=== PATIENT | male | born 1985 | race Two or more races ===

== ENCOUNTER 2025-06-17 13:11 | Inpatient (IN) | payer OTHER, SELFPAY ==
[2025-06-17] VITALS (8 sets, daily range): BP systolic 116–173; BP diastolic 71–102; PULSE 94–150; RESP 16–88; TEMP 36.1–37.6; O2SAT 94–97; BMI 37.6
--- NOTE | 2025-06-17 14:06 | EKG_ITS ---
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
--- NOTE | 2025-06-17 14:06 | XR_ITS ---
Examination: PA chest single view Technique: Upright PA chest single view Date and time: June 17, 2025 1419 hrs. Indications: Chest pain shortness of breath today. Findings: Moderate enlargement left ventricle. No pneumonia or pulmonary edema. The osseous structures are intact Impression: No pneumonia or pulmonary edema.
--- NOTE | 2025-06-17 14:10 | PD.EDRME ---
Rapid Medical Screening Exam RME Arrival date/time: 06/17/25 13:11 This is a 40 year male complaining on abdominal pain, nausea, vomiting, fever. Hx of diabetes. I have greeted and performed a focused initial assessment of this patient. Initial appropriate labs ordered at this time. A comprehensive ED assessment and evaluation of the patient and analysis of all test and completion of medical decision making process will be conducted by additional ED provider. Chief Complaint: Nausea/Vomiting/Diarrhea Time Seen by Provider: 06/17/25 13:17 Vital signs: Vital Signs Temperature 99.6 F 06/17/25 13:23 Pulse Rate 150 H 06/17/25 13:23 Respiratory Rate 20 06/17/25 13:23 Blood Pressure 142/102 H 06/17/25 13:23 Pulse Oximetry (%) 96 06/17/25 13:23 Oxygen Delivery Method Room Air 06/17/25 13:23
[2025-06-17 14:47] LABS: Basophils # (Auto) 0.0 Thou/mm3 (0.0-0.2); Basophils % (Auto) 0 % (0-2.5); Eosinophils # (Auto) 0.0 Thou/mm3 (0.0-0.5); Eosinophils % (Auto) 0 % (0-10); Hematocrit 46.3 % (41.0-53.0); Hemoglobin 15.4 g/dL (13.5-16.0); Immature Granulocytes Auto 0.05 Thou/mm3 (0.00-0.00); Lymphocytes # (Auto) 0.3 Thou/mm3 (1.0-4.8); Lymphocytes % (Auto) 2 % (10-50); Mean Corpuscular HGB Conc 33.3 g/dl (31.0-37.0); Mean Corpuscular Hemoglobin 28.2 pg (25.0-35.0); Mean Corpuscular Volume 85 fL (80-100); Monocytes # (Auto) 0.8 Thou/mm3 (0.0-0.8); Monocytes % (Auto) 5 % (0-12); Neutrophils # (Auto) 13.3 Thou/mm3 (1.8-7.7); Neutrophils % (Auto) 92 % (37-80); Nucleated Red Blood Cell # 0.00 Thou/mm3 (0.00-0.00); Nucleated Red Blood Cell % 0 /100 WBC (0); Platelet Count 256 Thou/mm3 (140-440); RDW Standard Deviation 38.7 fL (35.1-43.9); Red Blood Count 5.46 Miln/mm3 (4.50-5.90); White Blood Count 14.5 Thou/mm3 (3.8-10.6)
[2025-06-17 15:07] LABS: Collection Type, Urine Pedi-Bag
[2025-06-17] MEDS: ACETAMINOPHEN 500 MG TABLET 1000 MG PO (15:07)
[2025-06-17] MEDS: ONDANSETRON ODT 4 MG TABRAP PO (15:07)
[2025-06-17 15:18] LABS: Bacteria,Urine Rare; Bilirubin,Urine Negative (Negative); Blood,Urine Negative (Negative); Color,Urine Yellow (Lt Yel-Yel); Culture Indicated,Urine Not Indicated; Glucose, Urine 4+ (Negative); Granular Casts,Urine 2 /hpf (0-1); Hyaline Casts,Urine < 1 /hpf (0-1); Ketones,Urine Trace (Negative); Leukocyte Esterase,Urine Negative (Negative); Nitrite,Urine Negative (Negative); PH,Urine 5.5 (5.0-7.0); Protein,Urine 1+ (Neg - Trace); RBC,Urine 5 /hpf (0-3); Specific Gravity,Urine 1.036 (1.001-1.035); Squamous Epithelial Cell,Urine 4 /hpf (0-5); Urobilinogen,Urine Negative mg/dL (0.0-1.0); WBC,Urine 6 /hpf (0-5)
[2025-06-17 15:21] LABS: B-Type Natriuretic Peptide < 20 pg/mL (0-100)
[2025-06-17 15:23] LABS: Alanine Aminotransferase 80 U/L (10-49); Albumin, Serum 4.7 gm/dL (3.5-5.0); Albumin/Globulin Ratio 1.5 (1.2-2.2); Alkaline Phosphatase 77 U/L (46-116); Anion Gap 15 (7-16); Aspartate Amino Transferase 58 U/L (0-34); BUN/Creatinine Ratio 16 Ratio (12-20); Bilirubin,Total 0.7 mg/dL (0.3-1.2); Blood Urea Nitrogen 19 mg/dL (9-23); Calcium 9.9 mg/dL (8.3-10.6); Calcium (Corrected) 9.9 mg/dL (8.5-10.1); Carbon Dioxide 22.3 mMol/L (20.0-31.0); Chloride 100 mMol/L (98-107); Creatinine (Component) 1.2 mg/dL (0.6-1.3); Estimated Creatinine Clearance 109.0 mL/min (>60); Globulin 3.2 gm/dL (2.3-3.5); Glucose 380 mg/dL (74-106); Lipase 32 U/L (12-53); Osmolality,Calculated 292 (275-295); Potassium 4.1 mMol/L (3.4-5.1); Sodium 137 mMol/L (136-145); Total Protein 7.9 gm/dL (5.7-8.2); Troponin I < 0.020 ng/mL (0.0-0.045); eGFR > 60 See Note
--- NOTE | 2025-06-17 15:42 | EDNOTE_ITS ---
<Statement entered by Nida Porter MD - 06/18/25 06:24> As co-signing physician, I was present and available for consult prn. I concur with the plan and care as documented by the midlevel provider. ED General RME/HPI General Chief complaint: Nausea/Vomiting/Diarrhea Stated complaint: Vomiting today, fever, body aches Time Seen by Provider: 06/17/25 13:17 Arrival date/time: 06/17/25 13:11 RME / HPI RME / HPI narrative: 06/17/25 13:11 This is a 40 year male complaining on abdominal pain, nausea, vomiting, fever. Hx of diabetes. I have greeted and performed a focused initial assessment of this patient. Initial appropriate labs ordered at this time. A comprehensive ED assessment and evaluation of the patient and analysis of all test and completion of medical decision making process will be conducted by additional ED provider. 40-year-old male with past medical history of diabetes and hypertension comes into the ER with complaints of chills, diarrhea, nausea, vomiting, abdominal pain, and feelings of weakness that started this morning. Patient states that recently around 4 days ago he was bitten by something on his left side of neck and the lump appeared. He stated that the lump grew, but he has not had symptoms prior to today. He mentioned that the last thing that he ate out of his normal diet was a cup of Ramen with boiled eggs, but his girlfriend who also tasted the meal did not have any symptoms. Patient has been treated in the past for a diabetic ulcer as well. Otherwise patient denies having any chest pain, shortness of breath, burning sensation in urination, any blood in the urine, any blood in the bowel movements, or any blood in the vomiting. Patient admits social drinking, denies any smoking or drugs Related Data Home Medications ?Medication ?Instructions ?Recorded ?Confirmed lisinopril 40 mg tablet 40 mg PO QDAY 03/12/2303/12 metformin 500 mg tablet 1,000 mg PO BID 03/12/2309/24 Previous Rx's ?Medication ?Instructions ?Recorded semaglutide 1 mg/dose (4 mg/3 mL) 1 mg (0.75 mL) subcu t QWEEK #3 mL 03/13/23 subcutaneous pen injector (Ozempic) clindamycin HCl 300 mg capsule 300 mg PO Q6H #28 caps 01/29/24 ibuprofen 800 mg tablet 800 mg PO TID PRN pain #30 t abs 01/29/24 Allergies Allergy/AdvReac Type Severity Reaction Status Date / Time No Known Allergies Allergy Unknown Verified 06/17/25 13:17 Review of Systems Review of Systems Systems Reviewed: All systems reviewed, normal except as documented Past Medical History Past Medical History CARDIAC: Negative Cardiac Disorders or Congestive Heart Failure RESPIRATORY: Negative Chronic Obstructive Pulmonary Disease (COPD) or Asthma GENITOURINARY: Negative Renal Disease ENDOCRINE: Negative Diabetes Mellitus Type 1 or Diabetes Mellitus Type 2 HEMATOLOGIC: Negative Sickle Cell Disease Social History SMOKING STATUS: Never smoker ED Exam Narrative Physical exam: Gen: A&O X 3, ill appearing HEENT: NCAT, EOMI, Pupils reactive PIOTR, not icteric. External ears normal. No rhinorrhea. Moist mucous membranes. Neck: Supple, full range of motion, Nonfluctuating mobile mass measuring around 5 cm in diameter on the anterolateral aspect of the left neck with erythema and tenderness to palpation. No visible discharge. , No meningeal sign. Lungs: No Respiratory distress, clear bilateral. CV: tachycardic, no murmurs. Abdomen: Soft, nondistended, mildly tender to palpation in RLQ, No rebound tende rness. MSK: No joint swelling, no redness, peripheral pulses presents, lumbar with no edema. Skin: No petechiae, lesions. Demarcated rash around face, scalp, and around umbilicus is likely consistent with psoriasis. Neuro: No focal neurological deficits appreciated, sensory and motor intact. Psych: Cooperative, appropriate mood and effect. Course Quality Measures none Orders Category Date Time Status Bedside COVID-19 Antigen Test NOW Care 06/17/25 14:05 Active Bedside Influenza A&B Antigen Test NOW Care 06/17/25 14:05 Completed COVID-19 Screening Questionnaire NOW Care 06/17/25 18:[address] Screening NOW Care 06/17/25 16:09 Active Pre Certification Specialist STAT Care 06/17/25 15:52 Active Continuous Pulse Oximetry STAT Care 06/17/25 15:52 Completed Decision to Admit X1 Care 06/17/25 18:06 Active EKG (ED ONLY) *Do not use* NOW Care 06/17/25 14:06 Completed In and Out Catheter X1PRN Care 06/17/25 15:52 Active Insert IV NOW Care 06/17/25 15:52 Active NPO STAT Care 06/17/25 15:52 Active Strict Intake and Output Routine Care 06/17/25 15:[address] abdomen pelvis w con Stat Exams 06/17/25 16:[address] soft tissue neck w con Stat Exams 06/17/25 16:09 Completed EKG (ED Only) Stat Exams 06/17/25 14:06 Draft XR chest 1V Stat Exams 06/17/25 14:06 Completed BNP [B-Type Natriuretic Peptide] Stat Lab 06/17/25 14:35 Completed Beta Hydroxybutyrate Stat Lab 06/17/25 16:02 Completed Blood Culture (Lab) Stat Lab 06/17/25 16:07 Received CBC Stat Lab 06/17/25 14:35 Completed Comprehensive Metabolic Panel Stat Lab 06/17/25 14:35 Completed LDH (Lactate Dehydrogenase) Stat Lab 06/17/25 16:02 Completed Lactic Acid [Lactate (Lactic Acid)] Stat Lab 06/17/25 16:02 Results Lipase Stat Lab 06/17/25 14:35 Completed MRSA Nasal Screen Routine Lab 06/17/25 15:56 Ordered Magnesium Stat Lab 06/17/25 16:02 Completed Partial Thromboplastin Time Stat Lab 06/17/25 16:07 Completed Phosphorous Stat Lab 06/17/25 16:02 Completed Procalcitonin Stat Lab 06/17/25 16:02 Completed Prothrombin Time with INR Stat Lab 06/17/25 16:07 Completed Troponin I Stat Lab 06/17/25 14:35 Completed Urinalysis Stat Lab 06/17/25 15:52 Ordered Urinalysis, C/S if Indicated Stat Lab 06/17/25 15:00 Completed Urine Culture Stat Lab 06/17/25 15:52 Ordered Acetaminophen Tab [Tylenol ES Tab] Med 06/17/25 14:05 Discontinued 1,000 mg PO X1 ONE Magnesium Sulfate 4 GM Ivpb [Magnesium Sulfate Ivpb] Med 06/17/25 16:50 Active 4 gm in 50 ml IV X1 Ondansetron Inj [Zofran Inj] Med 06/17/25 15:52 Active 4 mg IVP Q6HR PRN Ondansetron Odt [Zofran Odt] Med 06/17/25 14:05 Discontinued 4 mg PO X1 ONE Piper/Tazo Inj [Zosyn Inj] 4.5 gm Med 06/17/25 15:51 Discontinued Sodium Chloride 0.9% (Pop) [NS 0.9% mini bag] 100 ml IV X1 Ringers Lactated 1000 ml [Lactated Ringers] 1,000 ml Med 06/17/25 15:52 Discontinued IV 999 mls/hr Ringers Lactated 1000 ml [Lactated Ringers] 1,000 ml Med 06/17/25 15:58 Discontinued IV 999 mls/hr Vancomycin Pharmacy to Dose Med 06/17/25 15:51 Discontinued 1 each IV X1 ONE Vancomycin/Water 1250 mg Ivpb 250 ml Med 06/17/25 16:00 Discontinued IV X1 Oxygen Delivery NOW RT 06/17/25 15:52 Active Vital Signs Vital signs: Vital Signs Temperature 99.6 F 06/17/25 13:23 Pulse Rate 150 H 06/17/25 13:23 Respiratory Rate 20 06/17/25 13:23 Blood Pressure 142/102 H 06/17/25 13:23 Pulse Oximetry (%) 96 06/17/25 13:23 Oxygen Delivery Method Room Air 06/17/25 13:23 Discharge Plan Plan Patient Disposition: Admit Acute Care w/in Hospital Prescriptions/Referrals Prescriptions/Med Rec: No Action metformin 500 mg tablet 1,000 mg PO BID lisinopril 40 mg tablet 40 mg PO QDAY Patient Comments: TAKE 1 TABLET BY MOUTH EVERY DAY FOR 90 DAYS Ozempic 1 mg/dose (4 mg/3 mL) pen injector 1 mg subcut QWEEK Qty: 3 0RF clindamycin HCl 300 mg capsule 300 mg PO Q6H Qty: 28 0RF ibuprofen 800 mg tablet 800 mg PO TID PRN (Reason: pain) Qty: 30 0RF Referrals: Chay Malcolm MD [Primary Care Provider] - In 1 week Problem List Clinical Impression: Community acquired pneumonia, Mass of neck Patient/Caregiver Discharge Instructions Print Language: [place] Zealander Stand Alone Forms: Sona Award Info., Patient Portal Info Letter MDM Narrative MDM hospital course: Patient was seen and evaluated upon arrival to the room by myself. Sepsis orders were called at 1552 as patient met SIRS criteria with tachycardia along with WBC elevation. At this time source of infection is uncertain as could be due to the abscess on the left neck versus possible intra-abdominal infection. 2 L of IV fluids were ordered along with Zosyn and vancomycin prior to starting antibiotics blood cultures were ordered. Also ordered CT abdomen with contrast and CT soft tissue neck with contrast. At this time patient's blood pressure was still stable. 18: 07: Spoke with IM team. Will pass along to night team for admission and they will assess patient. Case disclosed with Attending Dr. Charlotte Stark PGY2 Disclaimer: Even though this this note was dictated by speech recognition and even though it was carefully revised there may still be minor errors in fiberglass laminator due to voice recognition software. Medication Administration(s) Medication Administration History Magnesium Sulfate (Magnesium Sulfate Ivpb) 4 gm in 50 mls @ 12.5 mls/hr IV X1 ONE Stop: 06/17/25 20:49 Last Admin: 06/17/25 17:58 Dose: 12.5 mls/hr Documented By: RAISA Ondansetron HCl (Ondansetron Inj 2 Mg/Ml Inj 2 Ml) 4 mg IVP Q6HR PRN PRN Reason: NAUSEA OR VOMITING Stop: 07/17/25 15:51 Discontinued Medications Acetaminophen (Acetaminophen 500 Mg Tablet) 1,000 mg PO X1 ONE Stop: 06/17/25 14:06 Last Admin: 06/17/25 15:07 Dose: 1,000 mg Documented By: ANAT Piperacillin Sod/Tazobactam (Sod 4.5 gm/ Sodium Chloride) 100 mls @ 200 mls/hr IV X1 ONE Stop: 06/17/25 16:20 Last Infusion: 06/17/25 17:51 Dose: Infused Documented By: Admin: 06/17/25 16:40 Dose: 200 mls/hr Documented By: RAISA Lactated Ringer's (Lactated Ringers) 1,000 mls @ 999 mls/hr IV .Q1H1M ONE Stop: 06/17/25 16:52 Last Admin: 06/17/25 16:40 Dose: 999 mls/hr Documented By: RAISA Vancomycin HCl (Vancomycin/Water 1250 Mg Ivpb) 250 mls @ 120 mls/hr IV X1 ONE Stop: 06/17/25 18:04 Last Admin: 06/17/25 17:58 Dose: 120 mls/hr Documented By: RAISA Lactated Ringer's (Lactated Ringers) 1,000 mls @ 999 mls/hr IV .Q1H1M ONE Stop: 06/17/25 16:58 Last Admin: 06/17/25 16:40 Dose: 999 mls/hr Documented By: RAISA Ondansetron HCl (Ondansetron Odt 4 Mg Tabrap) 4 mg PO X1 ONE; Protocol Stop: 06/17/25 14:06 Last Admin: 06/17/25 15:07 Dose: 4 mg Documented By: ANAT Pharmacy Consult (Vancomycin Pharmacy To Dose 1 Each Each) 1 each IV X1 ONE Stop: 06/17/25 15:52 Last Admin: 06/17/25 18:00 Dose: Not Given Documented By: RAISA Non-Admin Reason: Other, see note
[2025-06-17 15:44] LABS: Clarity,Urine Hazy (Clear/Hazy)
--- NOTE | 2025-06-17 16:09 | XR_ITS ---
Examination: CT soft tissue neck, with intravenous contrast. 2-D coronal reconstructions. 2-D sagittal reconstructions. Date and time of exam :June 17, 2025, 1715 hours INDICATIONS: Onset left neck swelling and pain beginning 3 days ago. CTDI: vol (mGy):16.4 DLP: (mGycm):463 Technique: 1.25 mm axial sections of the neck of the obtained. Coronal and sagittal reconstructions have been obtained. Intravenous contrast administered 50 cc Isovue 370. Low dose protocols were performed. One or more of the following dose reduction techniques were used; automated exposure control, adjustment of the mA and/or KV according to patient size, use of iterative reconstruction technique. Findings: Cellulitis pattern in the soft tissue left neck external to the sternocleidomastoid muscle, for instance axial image 38, with skin thickening, as well as cellulitis in the posterior neck for instance axial image 20, primarily on the left side with skin thickening, without abscess at either site No pathologic lymphadenopathy The larynx appears normal Symmetrical parotid glands Symmetrical nasopharynx oropharynx Normal epiglottis Thyroid lobes exhibit symmetry IMPRESSION: Cellulitis pattern in the soft tissue left neck and posterior neck including skin thickening, no soft tissue abscess No pathologic lymphadenopathy
--- NOTE | 2025-06-17 16:09 | XR_ITS ---
Examination: CT abdomen with intravenous contrast CT pelvis with intravenous contrast 2-D coronal reconstructions 2-D sagittal reconstructions Date and time of exam:June 17, 2025. 1724 hours, comparison February 26, 2019 INDICATIONS: Sepsis alert today CTDI: vol (mGy) 17.8 DLP: (mGycm) 1194 Technique: Multiple axial sections of the abdomen and pelvis have been obtained. 64 slice high-resolution scanner used. 3 mm axial sections have been obtained, post intravenous injection of 60 cc Isovue 370 2-D sagittal, coronal reconstructions obtained. Low dose protocols were performed. One or more of the following dose reduction techniques were used; automated exposure control, adjustment of the mA and/or KV according to patient size, use of iterative reconstruction technique. Findings: Mild pneumonia right base. Fatty infiltration throughout the liver, no focal liver or splenic lesions No gallstones No pancreatic or adrenal mass. No renal or ureteral calculi, no hydronephrosis Aorta normal size 12 mm fat-containing umbilical hernia Appendix is not visualized No bowel obstruction No abdominal or pelvic abscess Minimal thickening of the urinary bladder wall No prostatomegaly The osseous structures are intact IMPRESSION: Mild pneumonia right base No renal or ureteral calculi, no hydronephrosis or CT findings of pyelonephritis Appendix is not visualized No bowel obstruction No abdominal or pelvic abscess Minimal thickening of the urinary bladder wall, consider cystitis
[2025-06-17 16:32] LABS: Beta Hydroxybutyrate 0.0 mmol/L (<0.6)
[2025-06-17 16:38] LABS: Lactate (Lactic Acid) 4.6 mMol/L (0.4-2.0)
[2025-06-17] MEDS: RINGERS LACTATED 1000 ML 1,000 ML 999 ML IV ×2 (16:40)
[2025-06-17] MEDS: PIPER/TAZO INJ 4.5 GM in SODIUM CHLORIDE 0.9% (POP) 100 ML IV (16:40)
[2025-06-17 16:47] LABS: LDH (Lactate Dehydrogenase) 308 U/L (120-246); Magnesium 1.1 mg/dL (1.6-2.6); Phosphorous 3.9 mg/dL (2.4-5.1); Procalcitonin 3.01 ng/ml (0.0-0.49)
[2025-06-17 16:57] LABS: INR 1.2 (0.9-1.3); Partial Thromboplastin Time 22.1 Seconds (22.0-36.0); Prothrombin Time 12.9 Seconds (9.0-12.2)
[2025-06-17] MEDS: Magnesium Sulfate 4 GM Ivpb 4 GM/50 ML BAG IV ×2 (17:58→22:07)
[2025-06-17] MEDS: VANCOMYCIN/WATER 1250 MG IVPB 250 ML 120 MG IV (17:58)
--- NOTE | 2025-06-17 18:09 | PD.RESEVENT ---
Documentation for date of: 06/17/25 Event Note Event Note: Received call for admission at 1810 for 48-year-old male with past medical history of uncontrolled diabetes mellitus, neck abscess in December 2021, diabetic right foot ulcer and hypertension who presented to [facility] ED for chills diarrhea nausea vomiting abdominal pain and feeling of weakness. Patient met SIRS criteria, had elevated lactate, 2 L IV fluids given in the ED per sepsis protocol, was given IV Zosyn and vancomycin. CT abdomen pelvis shows mild pneumonia right base,?Cystitis. CT soft tissue neck showed cellulitis pattern soft tissue neck. Low magnesium replaced in ED. Patient will be signed out to night hospitalist team for admission. Case discussed with Attending Physician MD Irais Rob MD Internal Medicine PGY-2 Disclaimer: This note was dictated by speech recognition. Minor errors in drum plater may be present due to voice recognition software.
[2025-06-17 18:56] LABS: Collection Type, Urine Clean Catch
[2025-06-17 19:10] LABS: Bilirubin,Urine Negative (Negative); Blood,Urine Negative (Negative); Clarity,Urine Clear (Clear/Hazy); Color,Urine Lt-Yellow (Lt Yel-Yel); Glucose, Urine 4+ (Negative); Ketones,Urine Negative (Negative); Leukocyte Esterase,Urine Negative (Negative); Nitrite,Urine Negative (Negative); PH,Urine 6.0 (5.0-7.0); Protein,Urine Negative (Neg - Trace); RBC,Urine < 1 /hpf (0-3); Specific Gravity,Urine 1.039 (1.001-1.035); Squamous Epithelial Cell,Urine 1 /hpf (0-5); Urobilinogen,Urine Negative mg/dL (0.0-1.0); WBC,Urine 1 /hpf (0-5)
[2025-06-17 19:13] LABS: Reflex Lactate? Y
[2025-06-17 19:41] LABS: Lactic Acid, 3 HR 3.3 mMol/L (0.4-2.0)
[2025-06-17] MEDS: HEPARIN SOD INJ 5000 UNIT/ML VIAL SC (22:06)
[2025-06-17] MEDS: SODIUM CHLORIDE 0.9% 1000 ML 1,000 ML 75 ML IV (22:08)
--- NOTE | 2025-06-17 22:57 | ESHP_ITS ---
<Statement entered by Hermann Howard MD - 06/19/25 09:53> I have discussed and was present for the essential components of the history, physical examination, diagnosis, and treatment plan with the resident. I agree with the patient's care as documented by the resident and amended herein by me. Hermann Howard MD FACP. Documentation for date of: 06/17/25 HPI History of Present Illness Chief complaint: Nausea, vomiting and diarrhea/neck cellulitis History of present illness: Patient is a 40-year-old male with history of type 2 diabetes (on metformin) and hypertension (on lisinopril) presenting with acute GI and infectious symptoms. He reports that he was in usual health until this morning when he developed sudden onset abdominal pain, nausea, vomiting (~5 episodes), and watery diarrhea (~5 episodes). No blood, mucus, bile, or coffee-ground emesis. No melena or hematochezia. He felt progressively worse through the morning, with subjective fever and chills, prompting ED visit. He also noticed a lump on the left side of his neck 3?4 days ago, initially small but has enlarged, mildly tender, and drained a small amount of fluid yesterday. No dysphagia, odynophagia, voice changes, or dyspnea. He recalls prior similar infections in 2019 (groin abscess, drained) and 3 years ago (scalp infection, treated with antibiotics). No recent travel or sick contacts. Only unusual food intake was ramen with eggs yesterday, though no one else got sick. No chest pain, shortness of breath, or palpitations. No urinary symptoms. Denies weight loss, night sweats, or neurologic deficits. ED Course: On arrival was tachycardic to 150 with BP 142/102, afebrile, and ill-appearing. Labs notable for WBC 14.5, lactate 4.6 (down to 3.3 after fluids), glucose 380, Cr 1.2 (baseline 0.8), Mg 1.1, procalcitonin 3.01. Sepsis protocol initiated with 2 L IV fluids, vancomycin, and zosyn; magnesium was repleted. CT abdomen/pelvis showed mild RLL pneumonia and bladder wall thickening (?cystitis). CT soft tissue neck revealed cellulitis without abscess. Blood and urine cultures were obtained. Patient stabilized in ED with HR improving to 90s, normotensive, SOFA 0. ROS * Constitutional: Fever, chills, fatigue. No night sweats, weight loss. * HEENT: Neck mass, mild tenderness. No dysphagia, voice changes, or dyspnea. * Resp: Denies cough, sputum, SOB, pleuritic pain. * Cardiac: No chest pain, palpitations, syncope. * GI: Nausea, vomiting, diarrhea, abdominal pain. No hematemesis, melena, hematochezia, constipation. * : No dysuria, hematuria, frequency, urgency. * Neuro: No headache, weakness, numbness, tingling. Blurry vision with near objects (chronic, uses glasses). * Skin: Known psoriasis, new neck lesion. No current foot ulcers. * MSK: No joint swelling or redness. * Psych: Denies mood changes, cooperative. 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 Left lateral neck with ~5 cm mobile, tender, erythematous mass with no drainage seen although patient has drained some, no fluctuance or airway compromise. Neck: Supple, no meningismus. CV: Tachycardic, regular, no murmurs. Pulm: No distress, clear breath sounds bilaterally. Abd: Soft, nondistended, mild RLQ tenderness without rebound/guarding. Skin: Psoriatic plaques on face/scalp/umbilicus. No new ulcers or lesions elsewhere. MSK: No edema, pulses 2+. Neuro: CN II?XII intact, motor and sensory intact. Psych: Cooperative, appropriate. Results: Labs 06/17/25 14:35 06/17/25 14:35 Labs: Short CBC 06/17/25 Range/Units 14:35 WBC 14.5 H (3.8-10.6) Thou/mm3 Hgb 15.4 (13.5-16.0) g/dL Hct 46.3 (41.0-53.0) % Plt Count 256 (140-440) Thou/mm3 BMP 06/17/25 14:35 Sodium 137 Potassium 4.1 Chloride 100 Carbon Dioxide 22.3 BUN 19 Creatinine 1.2 Glucose 380 H Calcium 9.9 Cardiac Enzymes 06/17/25 Range/Units 14:35 Troponin I < 0.020 (0.0-0.045) ng/mL Liver Function 06/17/25 Range/Units 14:35 Total Bilirubin 0.7 (0.3-1.2) mg/dL AST 58 H (0-34) U/L ALT 80 H (10-49) U/L Alkaline Phosphatase 77 (46-116) U/L Albumin 4.7 (3.5-5.0) gm/dL Urine 06/17/25 06/17/25 Range/Units 15:00 18:36 Urine Color Yellow Lt-Yellow (Lt Yel-Yel) Urine Clarity Hazy Clear (Clear/Hazy) Urine pH 5.5 6.0 (5.0-7.0) Ur Specific [place] 1.036 H 1.039 H (1.001-1.035) Urine Protein 1+ A Negative (Neg - Trace) Urine Glucose (UA) 4+ A 4+ A (Negative) Quality Measures Quality Measures VTE prophylaxis Medications Home Medications and Allergies Home Medications ?Medication ?Instructions ?Recorded ?Confirmed ?Type lisinopril 40 mg tablet 40 mg PO QDAY 03/12/2306/17 History metformin 500 mg tablet 1,000 mg PO BID 03/12/23 History semaglutide 2 mg/dose (8 mg/3 mL) 2 mg subcut .weekly 06/17/25 06/17/25 History subcutaneous pen injector (Ozempic) Allergies Allergy/AdvReac Type Severity Reaction Status Date / Time No Known Allergies Allergy Unknown Verified 06/17/25 13:17 Visit Medications Acetaminophen (Acetaminophen 325 Mg Tablet) 650 mg PO Q6H PRN PRN Reason: Fever >100.4 Stop: 07/17/25 20:40 Acetaminophen (Acetaminophen Supp 650 Mg Supp) 650 mg KS Q6H PRN PRN Reason: PAIN SCALE 1-3 (mild Stop: 07/17/25 20:40 Hydrocodone Bitart/Acetaminophen (Hydrocodone/Apap 5/325 Tablet) 1 tab PO Q4HR PRN PRN Reason: PAIN SCALE 4-10(Mod-Sev Stop: 06/22/25 20:40 Dextrose (Dextrose 50%-Water Inj 50 Ml Syringe) 50 ml IV Q15MIN PRN PRN Reason: BG <50 OR BG <70 & pt unresponsive Stop: 07/17/25 20:47 Dextrose (Dextrose 50%-Water Inj 50 Ml Syringe) 25 ml IV Q15MIN PRN PRN Reason: BG 50-70 responsive npo pt Stop: 07/17/25 20:47 Glucagon (Glucagon Inj 1 Mg Vial) 1 mg IM Q15MIN PRN PRN Reason: BG <70, and no IV access Heparin Sodium (Porcine) (Heparin Sod Inj 5000 Unit/Ml Vial) 5,000 unit SC Q12HR [facility] Stop: 07/01/25 20:59 Last Admin: 06/17/25 22:06 Dose: 5,000 unit Sodium Chloride (Ns) 1,000 mls @ 75 mls/hr IV .[id number] [facility] Stop: 07/17/25 20:44 Last Admin: 06/17/25 22:08 Dose: 75 mls/hr Magnesium Sulfate (Magnesium Sulfate Ivpb) 4 gm in 50 mls @ 12.5 mls/hr IV X1 ONE Stop: 06/18/25 00:45 Last Admin: 06/17/25 22:07 Dose: 12.5 mls/hr Piperacillin Sod/Tazobactam (Sod 4.5 gm/ Sodium Chloride) 100 mls @ 200 mls/hr IV Q8HR [facility] Stop: 06/24/25 21:59 Piperacillin Sod/Tazobactam (Sod 4.5 gm/ Sodium Chloride) 100 mls @ 200 mls/hr IV X1 ONE Stop: 06/18/25 00:29 Insulin Human Lispro (Insulin Lispro (Admelog) 1 Unit/0.01 Ml Unit) 0 unit SC [facility]; Protocol Stop: 07/18/25 07:29 Ondansetron HCl (Ondansetron Inj 2 Mg/Ml Inj 2 Ml) 4 mg IVP Q6HR PRN PRN Reason: NAUSEA OR VOMITING Stop: 07/17/25 15:51 Pantoprazole Sodium (Pantoprazole 40 Mg Tablet) 40 mg PO QDAY MICHAEL Stop: 07/18/25 08:59 Pharmacy Consult (Vancomycin Pharmacy To Dose 1 Each Each) 1 each IV QDAY MICHAEL Stop: 07/18/25 08:59 Sennosides (Senna Tablet) 1 tab PO QDAY PRN; Protocol PRN Reason: constipation Stop: 07/17/25 20:40 Discontinued Medications Acetaminophen (Acetaminophen 500 Mg Tablet) 1,000 mg PO X1 ONE Stop: 06/17/25 14:06 Last Admin: 06/17/25 15:07 Dose: 1,000 mg Piperacillin Sod/Tazobactam (Sod 4.5 gm/ Sodium Chloride) 100 mls @ 200 mls/hr IV X1 ONE Stop: 06/17/25 16:20 Last Infusion: 06/17/25 17:51 Dose: Infused Lactated Ringer's (Lactated Ringers) 1,000 mls @ 999 mls/hr IV .Q1H1M ONE Stop: 06/17/25 16:52 Last Infusion: 06/17/25 18:32 Dose: Infused Vancomycin HCl (Vancomycin/Water 1250 Mg Ivpb) 250 mls @ 120 mls/hr IV X1 ONE Stop: 06/17/25 18:04 Last Infusion: 06/17/25 20:03 Dose: Infused Lactated Ringer's (Lactated Ringers) 1,000 mls @ 999 mls/hr IV .Q1H1M ONE Stop: 06/17/25 16:58 Last Infusion: 06/17/25 18:32 Dose: Infused Magnesium Sulfate (Magnesium Sulfate Ivpb) 4 gm in 50 mls @ 12.5 mls/hr IV X1 ONE Stop: 06/17/25 20:49 Last Infusion: 06/17/25 22:06 Dose: Infused Ondansetron HCl (Ondansetron Odt 4 Mg Tabrap) 4 mg PO X1 ONE; Protocol Stop: 06/17/25 14:06 Last Admin: 06/17/25 15:07 Dose: 4 mg Pharmacy Consult (Vancomycin Pharmacy To Dose 1 Each Each) 1 each IV X1 ONE Stop: 06/17/25 15:52 Last Admin: 06/17/25 18:00 Dose: Not Given Assessment & Plan Plan 40M with uncontrolled DM and HTN presenting with acute abdominal pain, nausea/vomiting/diarrhea, fever/chills, and new left neck swelling, found to have SIRS with suspected multifactorial infection (neck cellulitis vs pneumonia vs cystitis). #SIRS (systemic inflammatory response syndrome) without acute organ dysfunction Patient meets SIRS criteria (tachycardia, leukocytosis, elevated lactate) but does not meet Sepsis (SOFA 0, no end-organ dysfunction). Infection appears multifactorial, with likely contributions from neck cellulitis (most suspicious primary source), possible right lower lobe pneumonia (seen on CT though no symptoms currently), and possible cystitis (bladder wall thickening on CT though UA negative). Plan: * Continue IV vancomycin + zosyn * Trend lactate q6h until normalized * Monitor vitals closely * Follow cultures (blood, urine) * Reassess source daily # Cellulitis of neck Left neck swelling x4 days, mildly tender, drained small amount of fluid, CT shows cellulitis without abscess. Plan: * Continue broad-spectrum abx * Monitor for abscess/airway compromise * ENT/surgery consult if worsening # Pneumonia, unspecified organism CT A/P with mild RLL pneumonia, though patient is without respiratory symptoms, sat stable. Plan: * Current antibiotics provide coverage * Incentive spirometry * Monitor for cough, fever, hypoxia # Cystitis, unspecified CT A/P shows bladder wall thickening, but UA negative, no urinary symptoms. Plan: * Follow urine culture * Continue current antibiotics * Monitor for new symptoms # Type 2 Diabetes Mellitus with hyperglycemia Glucose 380 on arrival, no DKA (B-hydroxybutyrate negative). On metformin at home. Plan: * Hold metformin (contrast + HALLIE) * Start SSI with correctional insulin * POC glucose q6h * Check A1C #Acute kidney injury, unspecified Cr 1.2 (baseline 0.8), likely prerenal from dehydration/sepsis. Plan: * Hold lisinopril * Gentle IVF as needed (avoid overload) * Monitor BMP daily #Hypomagnesemia Mg 1.1 on arrival, repleted in ED. Plan: * Recheck Mg in AM * Replace as needed #Hypertension On lisinopril 40 mg daily at home. BPs elevated in ED (142/102) but improved with fluids. Plan: * Hold lisinopril for now due to HALLIE * Monitor BP trend * Restart once renal function stable # Psoriasis Stable plaques on face, scalp, umbilicus. No acute flare. Plan: * Outpatient dermatology follow-up Health Maintenance Disposition: Admit to medicine floor with telemetry Feeding: Carb consistent diet Thromboprophylaxis: SQ heparin GI prophylaxis: Not indicated Code status: Full code ----- Plan discussed with attending physician Dr. Lee Chambers MD PGY-1 Internal Medicine
[2025-06-18] VITALS (9 sets, daily range): BP systolic 104–149; BP diastolic 75–93; PULSE 80–106; RESP 17–97; TEMP 36.1–36.6; O2SAT 93–99
[2025-06-18] MEDS: PIPER/TAZO INJ 4.5 GM in SODIUM CHLORIDE 0.9% (POP) 100 ML IV (00:19)
[2025-06-18 01:39] LABS: Lactate (Lactic Acid) 1.9 mMol/L (0.4-2.0)
[2025-06-18] MEDS: PIPER/TAZO 3.375 GM PREMIX 3.375 GM/50 ML BAG IV ×3 (05:25→23:00)
[2025-06-18 06:11] LABS: Basophils # (Auto) 0.0 Thou/mm3 (0.0-0.2); Basophils % (Auto) 0 % (0-2.5); Eosinophils # (Auto) 0.0 Thou/mm3 (0.0-0.5); Eosinophils % (Auto) 1 % (0-10); Hematocrit 39.0 % (41.0-53.0); Hemoglobin 13.0 g/dL (13.5-16.0); Immature Granulocytes Auto 0.01 Thou/mm3 (0.00-0.00); Lymphocytes # (Auto) 0.9 Thou/mm3 (1.0-4.8); Lymphocytes % (Auto) 11 % (10-50); Mean Corpuscular HGB Conc 33.3 g/dl (31.0-37.0); Mean Corpuscular Hemoglobin 28.5 pg (25.0-35.0); Mean Corpuscular Volume 86 fL (80-100); Monocytes # (Auto) 0.7 Thou/mm3 (0.0-0.8); Monocytes % (Auto) 8 % (0-12); Neutrophils # (Auto) 6.9 Thou/mm3 (1.8-7.7); Neutrophils % (Auto) 81 % (37-80); Nucleated Red Blood Cell # 0.00 Thou/mm3 (0.00-0.00); Nucleated Red Blood Cell % 0 /100 WBC (0); Platelet Count 195 Thou/mm3 (140-440); RDW Standard Deviation 38.9 fL (35.1-43.9); Red Blood Count 4.56 Miln/mm3 (4.50-5.90); White Blood Count 8.5 Thou/mm3 (3.8-10.6)
[2025-06-18 06:31] LABS: Glucose Estimated Average 220 mg/dL (80-131); Hemoglobin A1C 9.3 % Hgb (4.8-6.0)
[2025-06-18 07:37] LABS: Alanine Aminotransferase 68 U/L (10-49); Albumin, Serum 3.6 gm/dL (3.5-5.0); Albumin/Globulin Ratio 1.4 (1.2-2.2); Alkaline Phosphatase 52 U/L (46-116); Anion Gap 10 (7-16); Aspartate Amino Transferase 63 U/L (0-34); BUN/Creatinine Ratio 17 Ratio (12-20); Bilirubin,Total 0.6 mg/dL (0.3-1.2); Blood Urea Nitrogen 12 mg/dL (9-23); Calcium 8.6 mg/dL (8.3-10.6); Calcium (Corrected) 8.9 mg/dL (8.5-10.1); Carbon Dioxide 23.8 mMol/L (20.0-31.0); Chloride 104 mMol/L (98-107); Creatinine (Component) 0.7 mg/dL (0.6-1.3); Estimated Creatinine Clearance 191.7 mL/min (>60); Globulin 2.6 gm/dL (2.3-3.5); Glucose 254 mg/dL (74-106); Magnesium 2.0 mg/dL (1.6-2.6); Osmolality,Calculated 284 (275-295); Phosphorous 2.6 mg/dL (2.4-5.1); Potassium 3.5 mMol/L (3.4-5.1); Sodium 138 mMol/L (136-145); Total Protein 6.2 gm/dL (5.7-8.2); eGFR > 60 See Note
[2025-06-18] MEDS: INSULIN LISPRO (AdmeLOG) 1 UNIT/0.01 ML UNIT SC ×3 (07:41→17:14)
[2025-06-18] MEDS: PANTOPRAZOLE 40 MG TABLET PO (08:26)
[2025-06-18] MEDS: VANCOMYCIN/WATER 1GM IVPB 200 ML IV ×3 (08:26→21:19)
[2025-06-18] MEDS: HEPARIN SOD INJ 5000 UNIT/ML VIAL SC ×2 (08:26→21:16)
[2025-06-18] MEDS: INSULIN DEGLUDEC 5 UNIT/0.05 ML (PER 5 UNITS) SC ×2 (08:42→21:16)
[2025-06-18] MEDS: ACETAMINOPHEN 325 MG TABLET 650 MG PO (08:45)
--- NOTE | 2025-06-18 10:49 | PC.SS ---
Tc Horn is a 40 year-old male admitted to [facility] for N/V/D. SS conducted bedside contact with the patient to complete initial assessment and to discuss discharge planning. Role and reason explained. Patient confirmed demographic information. Patient identifies his mother Kelley Horn [phone] as his surrogate decision maker. Pt states he is able to complete all ADL?s independent. Pt does not possesses any DME. Pts PCP is Yun Hager. Pharmacy of choice is [facility]. Discharge options discussed and the pt wishes to return home.? Pt will provide transport. No further intervention required at this time, licensed clinical social worker would be available to address any further concerns. DC Plan: Home Contact: Mother Kelley Address: Confirmed on face sheet PCP: Yun
[2025-06-18] MEDS: INSULIN LISPRO (AdmeLOG) 1 UNIT/0.01 ML UNIT 2 UNIT SC ×2 (11:33→17:15)
--- NOTE | 2025-06-18 12:50 | PD.RESPRO ---
Documentation for date of: 06/18/25 Subjective Subjective Interval history: No acute events overnight. Patient seen and examined at bedside. Vitals and labs reviewed. Patient states he still feels weak overall, but says his weakness has improved. Patient states he is tolerating food well, endorsed a single soft bowel movement this morning. Patient denies fever, chest pain, shortness of breath, nausea, vomiting. Exam Vital Signs Temp Pulse Resp BP Pulse Ox O2 Del Method O2 Flow Rate 97.8 F 93 20 124/78 95 Room Air 2 06/18/25 08:00 06/18/25 08:43 06/18/25 08:09 06/18/25 08:43 06/18/25 08:00 06/18/25 08:00 06/17/25 19:20 Narrative Exam Gen: No acute distress, lethargic, A&O x3 HEENT: NC/AT, PERRLA, MMM. Left lateral neck with ~5 cm mobile, tender, erythematous mass with no drainage seen, no fluctuance or airway compromise. Neck: Supple, no meningismus. CV: Tachycardic, regular, no murmurs. Pulm: No distress, clear breath sounds bilaterally. Abd: Soft, nondistended, non-distended without rebound/guarding. Skin: Psoriatic plaques on face/scalp/umbilicus. No new ulcers or lesions elsewhere. MSK: No edema, pulses 2+. Neuro: CN II?XII intact, motor and sensory intact. Psych: Cooperative, appropriate. Objective Labs 06/19/25 05:37 06/19/25 05:37 Labs: Laboratory Results - last 24 hr 06/17/25 06/17/25 06/17/25 14:35 15:00 16:02 WBC 14.5 H RBC 5.46 Hgb 15.4 Hct 46.3 MCV 85 MCH 28.2 MCHC 33.3 RDW Std Deviation 38.7 Plt Count 256 Neut % (Auto) 92 H Lymph % (Auto) 2 L [place] % (Auto) 5 Eos % (Auto) 0 Baso % (Auto) 0 Neut # (Auto) 13.3 H Lymph # (Auto) 0.3 L [place] # (Auto) 0.8 Eos # (Auto) 0.0 Baso # (Auto) 0.0 Immature Gran # (Auto) 0.05 H Absolute Nucleated RBC 0.00 Immature Gran % 0 Nucleated RBC % 0 PT INR APTT Sodium 137 Potassium 4.1 Chloride 100 Carbon Dioxide 22.3 Anion Gap 15 BUN 19 Creatinine 1.2 Estim Creat Clear Calc 109.0 eGFR > 60 BUN/Creatinine Ratio [address] Glu mg/dL Hemoglobin A1c Calculated Osmolality 292 Lactic Acid 4.6 H* Calcium 9.9 Corrected Calcium 9.9 Phosphorus 3.9 Magnesium 1.1 L Total Bilirubin 0.7 AST 58 H ALT 80 H Alkaline Phosphatase 77 Lactate Dehydrogenase 308 H Troponin I < 0.020 B-Natriuretic Peptide < 20 Total Protein 7.9 Albumin 4.7 Globulin 3.2 Albumin/Globulin Ratio 1.5 Lipase 32 Beta-Hydroxybutyrate/Acetoacetate 0.0 Procalcitonin 3.01 H Ur Collection Type Pedi-Bag Urine Color Yellow Urine Clarity Hazy Urine pH 5.5 Ur Specific [place] 1.036 H Urine Protein 1+ A Urine Glucose (UA) 4+ A Urine Ketones Trace Urine Blood Negative Urine Nitrite Negative Urine Bilirubin Negative Urine Urobilinogen (Auto) Negative Ur Leukocyte Esterase Negative Urine RBC 5 H Urine WBC 6 H Ur Squamous Epith Cells 4 Urine Bacteria Rare Hyaline Casts < 1 Granular Casts 2 H Ur Culture Indicated? Not Indicated 06/17/25 06/17/25 06/17/25 16:07 18:36 19:35 WBC RBC Hgb Hct MCV MCH MCHC RDW Std Deviation Plt Count Neut % (Auto) Lymph % (Auto) [place] % (Auto) Eos % (Auto) Baso % (Auto) Neut # (Auto) Lymph # (Auto) [place] # (Auto) Eos # (Auto) Baso # (Auto) Immature Gran # (Auto) Absolute Nucleated RBC Immature Gran % Nucleated RBC % PT 12.9 H INR 1.2 APTT 22.1 Sodium Potassium Chloride Carbon Dioxide Anion Gap BUN Creatinine Estim Creat Clear Calc eGFR BUN/Creatinine Ratio Glucose Estimated Ave Glu mg/dL Hemoglobin A1c Calculated Osmolality Lactic Acid 3.3 H Calcium Corrected Calcium Phosphorus Magnesium Total Bilirubin AST ALT Alkaline Phosphatase Lactate Dehydrogenase Troponin I B-Natriuretic Peptide Total Protein Albumin Globulin Albumin/Globulin Ratio Lipase Beta-Hydroxybutyrate/Acetoacetate Procalcitonin Ur Collection Type Clean Catch Urine Color Lt-Yellow Urine Clarity Clear Urine pH 6.0 Ur Specific [place] 1.039 H Urine Protein Negative Urine Glucose (UA) 4+ A Urine Ketones Negative Urine Blood Negative Urine Nitrite Negative Urine Bilirubin Negative Urine Urobilinogen (Auto) Negative Ur Leukocyte Esterase Negative Urine RBC < 1 Urine WBC 1 Ur Squamous Epith Cells 1 Urine Bacteria None Hyaline Casts Granular Casts Ur Culture Indicated? 06/18/25 06/18/25 01:19 05:54 WBC 8.5 D RBC 4.56 Hgb 13.0 L D Hct 39.0 L MCV 86 MCH 28.5 MCHC 33.3 RDW Std Deviation 38.9 Plt Count 195 D Neut % (Auto) 81 H Lymph % (Auto) 11 [place] % (Auto) 8 Eos % (Auto) 1 Baso % (Auto) 0 Neut # (Auto) 6.9 Lymph # (Auto) 0.9 L [place] # (Auto) 0.7 Eos # (Auto) 0.0 Baso # (Auto) 0.0 Immature Gran # (Auto) 0.01 H Absolute Nucleated RBC 0.00 Immature Gran % 0 Nucleated RBC % 0 PT INR APTT Sodium 138 Potassium 3.5 D Chloride 104 Carbon Dioxide 23.8 Anion Gap 10 BUN 12 Creatinine 0.7 D Estim Creat Clear Calc 191.7 eGFR > 60 BUN/Creatinine Ratio 17 Glucose [address] Glu mg/dL 220 H Hemoglobin A1c 9.3 H Calculated Osmolality 284 Lactic Acid 1.9 Calcium 8.6 Corrected Calcium 8.9 Phosphorus 2.6 Magnesium 2.0 Total Bilirubin 0.6 AST 63 H ALT 68 H Alkaline Phosphatase 52 D Lactate Dehydrogenase Troponin I B-Natriuretic Peptide Total Protein 6.2 Albumin 3.6 D Globulin 2.6 Albumin/Globulin Ratio 1.4 Lipase Beta-Hydroxybutyrate/Acetoacetate Procalcitonin Ur Collection Type Urine Color Urine Clarity Urine pH Ur Specific [place] Urine Protein Urine Glucose (UA) Urine Ketones Urine Blood Urine Nitrite Urine Bilirubin Urine Urobilinogen (Auto) Ur Leukocyte Esterase Urine RBC Urine WBC Ur Squamous Epith Cells Urine Bacteria Hyaline Casts Granular Casts Ur Culture Indicated? Quality Measures Quality Measures VTE prophylaxis Assessment & Plan Assessment Current Active Medications: Generic Name Dose Route Start Last Admin Trade Name Freq PRN Reason Stop Dose Admin Acetaminophen 650 mg 06/17/25 20:41 Acetaminophen Supp 650 Mg Supp TN 07/17/25 20:40 Q6H PRN PAIN SCALE 1-3 (mild Protocol Acetaminophen 650 mg 06/18/25 08:45 Acetaminophen 325 Mg Tablet PO 07/17/25 20:40 Q6H PRN Fever >100.0 or pain 1-3 Hydrocodone Bitart/Acetaminophen 1 tab 06/17/25 20:41 Hydrocodone/Apap 5/325 Tablet PO 06/22/25 20:40 Q4HR PRN PAIN SCALE 4-10(Mod-Sev Dextrose 50 ml 06/17/25 20:48 Dextrose 50%-Water Inj 50 Ml Syringe IV 07/17/25 20:47 Q15MIN PRN BG <50 OR BG <70 & pt unresponsive Dextrose 25 ml 06/17/25 20:48 Dextrose 50%-Water Inj 50 Ml Syringe IV 07/17/25 20:47 Q15MIN PRN BG 50-70 responsive npo pt Glucagon 1 mg 06/17/25 20:48 Glucagon Inj 1 Mg Vial IM Q15MIN PRN BG <70, and no IV access Heparin Sodium (Porcine) 5,000 unit 06/17/25 21:00 06/18/25 08:26 Heparin Sod Inj 5000 Unit/Ml Vial SC 07/01/25 20:59 5,000 unit Q12HR MICHAEL Administration Piperacillin/Tazobactam/Dextrose 3.375 gm in 50 mls @ 12.5 mls/hr 06/18/25 06:00 06/18/25 05:25 Zosyn IV 06/25/25 05:59 12.5 mls/hr Q8HR [facility] Administration Protocol Vancomycin HCl 200 mls @ 120 mls/hr 06/18/25 08:00 06/18/25 08:26 Vancomycin/Water 1gm Ivpb IV 06/25/25 07:59 120 mls/hr Q8HR MICHAEL Administration Insulin Degludec 5 unit 06/18/25 21:00 Insulin Degludec 5 Unit/0.05 Ml (Per 5 Units) SC 07/18/25 20:59 HS MICHAEL Insulin Human Lispro 0 unit 06/18/25 07:30 06/18/25 11:34 Insulin Lispro (Admelog) 1 Unit/0.01 Ml Unit SC 07/18/25 07:29 2 unit AC [facility] Administration Protocol Insulin Human Lispro 2 unit 06/18/25 12:00 06/18/25 11:33 Insulin Lispro (Admelog) 1 Unit/0.01 Ml Unit SC 07/18/25 11:59 2 unit TIDWM MICHAEL Administration Lisinopril 40 mg 06/18/25 09:00 06/18/25 08:43 Lisinopril 20 Mg Tablet PO 07/18/25 08:59 40 mg QDAY MICHAEL Administration Ondansetron HCl 4 mg 06/17/25 15:52 Ondansetron Inj 2 Mg/Ml Inj 2 Ml IVP 07/17/25 15:51 Q6HR PRN NAUSEA OR VOMITING Pantoprazole Sodium 40 mg 06/18/25 09:00 06/18/25 08:26 Pantoprazole 40 Mg Tablet PO 07/18/25 08:59 40 mg QDAY MICHAEL Administration Pharmacy Consult 1 each 06/18/25 09:00 Vancomycin Pharmacy To Dose 1 Each Each IV 07/18/25 08:59 QDAY PRN CONSULT Sennosides 1 tab 06/17/25 20:41 Senna Tablet PO 07/17/25 20:40 QDAY PRN constipation Protocol Plan Assessment 40M with uncontrolled DM and HTN presenting with acute abdominal pain, nausea/vomiting/diarrhea, fever/chills, and new left neck swelling, found to have SIRS with suspected multifactorial infection (neck cellulitis vs pneumonia vs cystitis). #SIRS (systemic inflammatory response syndrome) without acute organ dysfunction #lactic acidosis, improved Patient meets SIRS criteria (tachycardia, leukocytosis, elevated lactate) but does not meet Sepsis (SOFA 0, no end-organ dysfunction). Infection appears multifactorial, with likely contributions from neck cellulitis (most suspicious primary source), possible right lower lobe pneumonia (seen on CT though no symptoms currently), and possible cystitis (bladder wall thickening on CT though UA negative). Lactic Acid on admission 4.6 -> 3.3 -> 06/18: 1.9 Plan: -Continue IV vancomycin + zosyn -ID consulted -Monitor vitals closely -Follow cultures (blood, urine) -Reassess source daily # Cellulitis of neck Left neck swelling x4 days, mildly tender, drained small amount of fluid, CT shows cellulitis without abscess. Plan: -Continue broad-spectrum abx -Started MRSA precautions given hx of MRSA pos wound cultures -ID consulted -Monitor for abscess/airway compromise -ENT/surgery consult if worsening # Pneumonia, unspecified organism CT A/P with mild RLL pneumonia, though patient is without respiratory symptoms, sat stable. Plan: -Current antibiotics provide coverage -incentive spirometry -Monitor for cough, fever, hypoxia # Type 2 Diabetes Mellitus with hyperglycemia Glucose 380 on arrival, no DKA (B-hydroxybutyrate negative). On metformin at home. 06/18: HbA1c 9.3, Glucose 254 Plan: -Gave Insulin Degludec 5 units x1 -Hold metformin (contrast + HALLIE) -Start SSI with correctional insulin -POC glucose q6h #Nausea, vomiting, and suspected C. difficile infection Patient presented after having sudden onset abdominal pain, nausea, vomiting (~5 episodes), and watery diarrhea (~5 episodes). 06/18: Patient had 1 soft stool this morning. -Ordered C.diff pcr and stool cultures #Mildly elevated LFT's May be due to hypovolemia (reduced liver perfusion) due to n/v & diarrhea Patient presented with AST 58, ALT 80. 06/18: AST 63, ALT 68. -will continue to trend lft's. # Cystitis, unspecified CT A/P shows bladder wall thickening, but UA negative, no urinary symptoms. Plan: -Follow urine culture -Continue current antibiotics -Monitor for new symptoms #Acute kidney injury, unspecified Cr 1.2 (baseline 0.8), likely prerenal from dehydration/sepsis. 06/18: Cr 0.7 Plan: -Restarted Lisinopril 40 mg qd -Gentle IVF as needed (avoid overload) -Monitor BMP daily #Hypomagnesemia, improving Mg 1.1 on arrival, repleted in ED. 06/18: 2.0 Plan: -Recheck Mg in AM -Replace as needed #Hypertension On lisinopril 40 mg daily at home. BPs elevated in ED (142/102) but improved with fluids. Plan: -Restarted Lisinopril 40 mg qd; Cr improved to 0.7 -Monitor BP trend -Restart once renal function stable # Psoriasis Stable plaques on face, scalp, umbilicus. No acute flare. Plan: -Outpatient dermatology follow-up Health Maintenance Disposition: Admit to medicine floor with telemetry Feeding: Carb consistent diet Thromboprophylaxis: SQ heparin GI prophylaxis: Not indicated Code status: Full code Patient plan of care was discussed with the attending physician, Dr. Hernandez & senior resident Dr. Johan Wang MD PGY-1 Attending Provider Attestation/Addendum Patient seen and examined at bedside. Agree with the assessment and plan as dictated above. Sepsis m/l 2/2 skin infection with possible abscess. Will continue with broad spectrum abx including coverage for MRSA. Patient needs tighter BG control Rivera Hernandez MD
[2025-06-18 14:10] LABS: Stool for WBCs Negative (Negative)
[2025-06-19] VITALS (7 sets, daily range): BP systolic 102–125; BP diastolic 56–79; PULSE 87–100; RESP 17–95; TEMP 36.1–36.4; O2SAT 94–97
[2025-06-19] MEDS: PIPER/TAZO 3.375 GM PREMIX 3.375 GM/50 ML BAG IV (05:26)
[2025-06-19 06:28] LABS: Basophils # (Auto) 0.0 Thou/mm3 (0.0-0.2); Basophils % (Auto) 1 % (0-2.5); Eosinophils # (Auto) 0.1 Thou/mm3 (0.0-0.5); Eosinophils % (Auto) 2 % (0-10); Hematocrit 38.1 % (41.0-53.0); Hemoglobin 12.6 g/dL (13.5-16.0); Immature Granulocytes Auto 0.01 Thou/mm3 (0.00-0.00); Lymphocytes # (Auto) 1.6 Thou/mm3 (1.0-4.8); Lymphocytes % (Auto) 31 % (10-50); Mean Corpuscular HGB Conc 33.1 g/dl (31.0-37.0); Mean Corpuscular Hemoglobin 28.8 pg (25.0-35.0); Mean Corpuscular Volume 87 fL (80-100); Monocytes # (Auto) 0.8 Thou/mm3 (0.0-0.8); Monocytes % (Auto) 16 % (0-12); Neutrophils # (Auto) 2.5 Thou/mm3 (1.8-7.7); Neutrophils % (Auto) 50 % (37-80); Nucleated Red Blood Cell # 0.00 Thou/mm3 (0.00-0.00); Nucleated Red Blood Cell % 0 /100 WBC (0); Platelet Count 178 Thou/mm3 (140-440); RDW Standard Deviation 40.4 fL (35.1-43.9); Red Blood Count 4.38 Miln/mm3 (4.50-5.90); White Blood Count 5.1 Thou/mm3 (3.8-10.6)
[2025-06-19 06:39] LABS: Alanine Aminotransferase 79 U/L (10-49); Albumin, Serum 3.6 gm/dL (3.5-5.0); Albumin/Globulin Ratio 1.5 (1.2-2.2); Alkaline Phosphatase 48 U/L (46-116); Anion Gap 8 (7-16); Aspartate Amino Transferase 70 U/L (0-34); BUN/Creatinine Ratio 16 Ratio (12-20); Bilirubin,Total 0.4 mg/dL (0.3-1.2); Blood Urea Nitrogen 13 mg/dL (9-23); Calcium 8.5 mg/dL (8.3-10.6); Calcium (Corrected) 8.8 mg/dL (8.5-10.1); Carbon Dioxide 26.6 mMol/L (20.0-31.0); Chloride 105 mMol/L (98-107); Creatinine (Component) 0.8 mg/dL (0.6-1.3); Estimated Creatinine Clearance 167.7 mL/min (>60); Globulin 2.4 gm/dL (2.3-3.5); Glucose 168 mg/dL (74-106); Magnesium 1.8 mg/dL (1.6-2.6); Osmolality,Calculated 283 (275-295); Phosphorous 3.1 mg/dL (2.4-5.1); Potassium 3.7 mMol/L (3.4-5.1); Sodium 140 mMol/L (136-145); Total Protein 6.0 gm/dL (5.7-8.2); Vancomycin,Trough 8.3 mcg/mL (5.0-10.0); eGFR > 60 See Note
[2025-06-19] MEDS: VANCOMYCIN/WATER 1GM IVPB 200 ML IV (06:47)
[2025-06-19] MEDS: INSULIN LISPRO (AdmeLOG) 1 UNIT/0.01 ML UNIT SC ×2 (08:00→12:33)
[2025-06-19] MEDS: INSULIN LISPRO (AdmeLOG) 1 UNIT/0.01 ML UNIT 2 UNIT SC ×2 (08:01→12:34)
[2025-06-19] MEDS: HEPARIN SOD INJ 5000 UNIT/ML VIAL SC (08:01)
[2025-06-19] MEDS: PANTOPRAZOLE 40 MG TABLET PO (08:02)
[2025-06-19 08:54] LABS: Hepatitis C Antibody Non Reactive (Non React)
[2025-06-19 10:00] LABS: HIV (1&2) Antibody Rapid Non-Reactive
--- NOTE | 2025-06-19 11:11 | ESCONSULT_ITS ---
RE: DAYNA CHAVEZ : 1985 DATE OF CONSULTATION: 06/19/2025 REFERRING PHYSICIAN: Chay Malcolm MD and Hermann Howard MD REASON FOR CONSULTATION: Diabetic and hypertensive with left neck mass, probably a small abscess. HISTORY OF PRESENT ILLNESS: The patient is a recent father. He has a baby at home. He has a left cervical mass of uncertain origin. He notes no positive cultures, no positive systemic cultures. He had an elevated lactic acid on arrival and procalcitonin, so he was admitted to the hospital and has received IV therapy, but all cultures have been negative. bc were originally on the the 16th in the evening, so it is not quite 48 hours. He says he has been here for about 2 days, but it has been probably 2 days officially at about 4:00 p.m. He had group A strep in blood culture in 2023 and received antibiotics at that time whatt exactly he is not clear. His A1c is pending. Hepatitis C testing is negative. HIV testing is pending. He reports no sexual contacts as his recently had a baby. He is on Ozempic and metformin for his diabetes, lisinopril for his blood pressure and not taking his ibuprofen which he is on a p.r.n. basis and clindamycin, which he is also off. I am asked to see him to advised regarding treatment plan. He has been on vancomycin and Zosyn for couple of days. There is no recent renal dysfunction and his labs have improved significantly. He is mildly anemic though, which is relatively new. His MCV is normal. MCHC is normal as well. Platelet count is on low end and lymphocyte count is also okay, which is initially slightly low. Sed rate in 2022 was 10. It has not been repeated, but there is no need for it to be repeated. Labs reviewed, some of them date back several years. PHYSICAL EXAMINATION: On exam, the patient is pleasant, and cooperative. There is a nontender mass in the left neck inferiorly. It is fairly unimpressive. It looks like more of an inclusion cyst and it may be MRSA and it is hard to know. Usually abscesses are caused by staph and so we can change his antibiotics to doxycycline. Clindamycin would have worked in many cases, but it is unclear that it did and many of the staph are resistant to it mssa is also sensitive to doxycycline so we can try that. If it does not work, Bactrim may be okay. The patient will likely go home on oral therapy and will complete therapy as an outpatient. Another week to 10 days of oral doxycycline will be fine. He should control his diabetes as best he can as well and hopefully, his baby will field return repairer okay. If his HIV is positive, I can see him again on Thursday, but otherwise there is no need for any further follow-up infectious disease. He is to follow up with Dr. Malcolm. He sees Dr. Chay Malcolm at [facility]. DT: 09:27:41 TT: 11:10:00 Ref: [id number] - TID: [id number] MTDD
--- NOTE | 2025-06-19 18:09 | ESDS_ITS ---
<Statement entered by Vlad Prado MD - 06/20/25 20:03> I have reviewed the note and agree with the resident's assessment & plan with exceptions as below. I have personally reviewed labs, imaging, home meds/prior records, examined the patient, formulated and discussed management plan with the IM team. Pt examined at bedside. Cultures negative after 48 hours, pt seen by ID, recommendations of Doxycycline. Pt was then discharged with doxy, to take as prescribed. 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 Pt was then discharged with the following instructions listed below. Vlad Prado, PGY-2 Internal Medicine Planned Discharge Date 06/19/25 DS: Providers Provider Date of admission: 06/17/25 20:33 Primary care physician: Chay Malcolm MD Admitting Provider: Hermann Howard MD Attending Provider on Admission: Eleazar Zelaya MD Consults: 06/18/25 14:31 Consult to Infectious Diseases Routine Comment: recurrent MRSA infections Consulting Provider: [place] Attending Provider on DC: Eleazar Zelaya MD Discharging Provider: Eleazar Zelaya MD DS: Diagnosis Problem List Completed Was Problem List Reviewed/Reconciled?: Yes Hospital Course Hospital Course Hospital course: Patient is a 40-year-old male with history of type 2 diabetes (on metformin) and hypertension (on lisinopril) presenting to [facility] with acute GI and infectious symptoms. Patient admitted for intractable nausea & vomiting, found to have neck cellulitis. Patient was found to have worsening abdominal pain, nausea, vomiting (~5 episodes), and watery diarrhea (~5 episodes). Also found to have cellulitis of neck for the last 3?4 days, initially small but has enlarged, mildly tender, and drained a small amount of fluid the day before admission. The neck cellulitis did not interfere with his breathing, speech, or swallowing. On arrival to the ED, he was tachycardic to 150 with BP 142/102, afebrile, and ill-appearing. Labs notable for WBC 14.5, lactate 4.6, glucose 380, Cr 1.2 (baseline 0.8), Mg 1.1, procalcitonin 3.01. Sepsis protocol initiated with 2 L IV fluids, vancomycin, and zosyn; magnesium was repleted. CT abdomen/pelvis showed mild right lower lobe pneumonia and bladder wall thickening. CT soft tissue neck revealed cellulitis without abscess. Blood and urine cultures were obtained. Patients was stabilized in ED with HR improving to 90s, normotensive. Blood and urine cultures were found to be negative after 48 hours. Kidney function tests improved throughout hospitalization. Infectious disease was consulted and recommended being discharged on oral doxycycline for outpatient use. Patient arrived with out of control glucose which was support ively managed in the hospital and needs to be thoroughly addressed outpatient. Discharge Instructions ? Follow-up with you primary care physician within 1 week from discharge ? Use the antibiotic doxycycline 100 mg orally 2 times a day to complete 10 days ? Your blood sugar is not controlled for the reason you have increased risk for recurrent skin infections, your blood sugar should be well-controlled to achieve best results and to prevent recurrence. Follow-up with your primary care provider for further recommendations ?In case of worsening of your symptoms please return to the ED as soon as possible ? Use medications as prescribed Admission Diagnosis #lactic acidosis #Cellulitis of neck #Pneumonia, unspecified organism #Type 2 Diabetes Mellitus with hyperglycemia #Nausea, vomiting, diarrhea #Mildly elevated LFT's #Cystitis, unspecified #Acute kidney injury, unspecified #Hypomagnesemia #Hypertension #Psoriasis Patient plan of care was discussed with the attending physician, Dr. Zelaya & senior resident Dr. Johan Wang MD PGY-1 Time Spent with Patient Time attestation: Total time spent providing and/or coordinating discharge services: Time spent: Greater than 30 minutes Exam Vital Signs Temp Pulse Resp BP Pulse Ox O2 Del Method O2 Flow Rate 97.0 F 90 17 115/75 95 Room Air 2 06/19/25 16:06/19/25 16:06/19/25 16:06/19/25 16:06/19/25 16:06/19/25 16:06/17/25 19:20 Narrative Exam Gen: No acute distress, A&O x3 HEENT: NC/AT, PERRLA, MMM. Left lateral neck with ~5 cm mobile, tender, erythematous mass with no drainage seen, no fluctuance or airway compromise. Neck: Supple, no meningismus. CV: Tachycardic, regular, no murmurs. Pulm: No distress, clear breath sounds bilaterally. Abd: Soft, nondistended, non-distended without rebound/guarding. Skin: Psoriatic plaques on face/scalp/umbilicus. No new ulcers or lesions elsewhere. MSK: No edema, pulses 2+. Neuro: CN II?XII intact, motor and sensory intact. Psych: Cooperative, appropriate. Discharge Plan Plan Patient Disposition: HOME (Self Care) Patient condition on transfer: Stable Care Plan Goals: Discharge instructions: ? Follow-up with you primary care physician within 1 week from discharge ? Use the antibiotic doxycycline 100 mg orally 2 times a day to complete 10 days ? Your blood sugar is not controlled for the reason you have increased risk for recurrent skin infections, your blood sugar should be well-controlled to achieve best results and to prevent recurrence. Follow-up with your primary care provider for further recommendations ?In case of worsening of your symptoms please return to the ED as soon as possible ? Use medications as prescribed Prescriptions/Referrals Prescriptions/Med Rec: New hydrocodone-acetaminophen 5-325 mg Tablet 1 tab PO Q6H MDD 20mg PRN (Reason: Pain Scale 4-10(Mod-Sev) 5 Days Qty: 20 0RF doxycycline hyclate 100 mg Tablet 100 mg PO BID 9 Days Qty: 18 0RF Continued metformin 500 mg tablet 1,000 mg PO BID lisinopril 40 mg tablet 40 mg PO QDAY Patient Comments: TAKE 1 TABLET BY MOUTH EVERY DAY FOR 90 DAYS Ozempic 2 mg/dose (8 mg/3 mL) pen injector 2 mg SUBCUT .weekly Patient Comments: INJECT 2 MG SUBCUTANEOUSLY WEEKLY-every thursday Discontinued Ozempic 1 mg/dose (4 mg/3 mL) pen injector 1 mg subcut QWEEK Qty: 3 0RF clindamycin HCl 300 mg capsule 300 mg PO Q6H Qty: 28 0RF ibuprofen 800 mg tablet 800 mg PO TID PRN (Reason: pain) Qty: 30 0RF Referrals: Chay Malcolm MD [Primary Care Provider] - Patient/Caregiver Discharge Instructions Discharge Activity: activity as tolerated Education Materials: CGM, Your Diabetes Foot Care Program, ED Abscess Antibi otic ... Print Language: [place] Stand Alone Forms: Sona Award Info., Patient Portal Info Letter Discharge Order Discharge Orders: Discharge (Routine); Ordered 06/19/25 Ordered By: Abdoulaye Butt Quality Discharge Quality Measures VTE prophylaxis MD Attestestation MD Attestation I have examined the patient, reviewed labs and imaging findings, discussed the case with the resident(s), and reviewed entered orders. I agree with the plan of care as outlined in this note. Time Spent: [address] Nathalie MD
== END 2025-06-19 16:30 | disposition home or self-care (01) | DRG 602 ==
LOC: SERX 18:08 → SERHOLD 21:18 → S3NX 06-19 06:19
PROVIDERS: Internal Medicine Infectious Disease; Nurse Practitioner Family; Admitting Provider Internal Medicine; Emergency Provider Emergency Medicine; PCP Family Medicine; Visit Provider Student in an Organized Health Care Education/Training Program
DX: L03.221 Cellulitis of neck (principal); J18.9 Pneumonia, unspecified organism; N17.9 Acute kidney failure, unspecified; E87.20 Acidosis, unspecified; I10 Essential (primary) hypertension; L40.9 Psoriasis, unspecified; E83.42 Hypomagnesemia; D64.9 Anemia, unspecified; E11.65 Type 2 diabetes mellitus with hyperglycemia; Z79.84 Long term (current) use of oral hypoglycemic drugs; N30.90 Cystitis, unspecified without hematuria; Z79.85 Long-term (current) use of injectable non-insulin antidiabetic drugs; Z79.899 Other long term (current) drug therapy; R79.89 Other specified abnormal findings of blood chemistry; B95.62 Methicillin resistant Staphylococcus aureus infection as the cause of diseases classified elsewhere
CPT/HCPCS: 36415; 70491; 71045; 74177; 80053; 80202; 81001; 82010; 83036; 83605; 83615; 83690; 83735; 83880; 84100; 84145; 84484; 85025; 85610; 85730; 86703; 86803; 87015; 87040; 87045; 87046; 87081; 87086; 87205; 87400; 87493; 87811; 87899; 93005; 96365; 96366; 99284; A4649; J1644; J1815; J2543; J3372; J3375; J3475; J7030; J7120; Q0162; Q9967; A9270

== ENCOUNTER 2025-06-22 12:07 | Emergency (ER) | payer OTHER, SELFPAY ==
[2025-06-22 12:08] VITALS: BMI 39.2
--- NOTE | 2025-06-22 12:26 | XR_ITS ---
Examination: CT abdomen and pelvis without contrast. Coronal 3-D reconstructions. Sagittal 2-D reconstructions. Date and time of exam:04/22/2025 1444 hours INDICATIONS: Lower abdominal pain with bilateral flank pain today COMPARISON: June 17, 2025 CTDI: vol (mGy): 13 DLP: (mGycm): 907 Technique: Axial images of the abdomen have been obtained, 3 mm slice thickness Intravenous contrast material has not been administered. Low dose protocols were performed. One or more of the following dose reduction techniques were used; automated exposure control, adjustment of the mA and/or KV according to patient size, use of iterative reconstruction technique. Findings: Liver irregular in contour with diffuse fatty infiltration No gallstones Spleen not enlarged No pancreatic or adrenal mass 2 mm right renal calculus Minimal right hydronephrosis secondary to 2 mm right ureterovesical junction calculus No bowel obstruction No pericecal inflammatory change Mild thickening of urinary bladder wall IMPRESSION: Minimal right hydronephrosis secondary to 2 mm distal right ureterovesical junction calculus Cystitis pattern
[2025-06-22 12:30] VITALS: BP 175/98; PULSE 77; RESP 16; TEMP 36.7; O2SAT 97
--- NOTE | 2025-06-22 12:50 | PC.NURSE ---
Pt. to room 16 from home for nausea and vomiting that started this morning, pt. states he was seen in ER previously over the weekend for same complaint. Pt. states he feels like he needs to urinate but only a small amount comes out.
[2025-06-22] MEDS: METOCLOPRAMIDE INJ 5 MG/ML VIAL 2 ML 10 MG IM (12:52)
[2025-06-22 13:07] LABS: Basophils # (Auto) 0.0 Thou/mm3 (0.0-0.2); Basophils % (Auto) 0 % (0-2.5); Eosinophils # (Auto) 0.0 Thou/mm3 (0.0-0.5); Eosinophils % (Auto) 0 % (0-10); Hematocrit 39.8 % (41.0-53.0); Hemoglobin 13.6 g/dL (13.5-16.0); Immature Granulocytes Auto 0.05 Thou/mm3 (0.00-0.00); Lymphocytes # (Auto) 1.8 Thou/mm3 (1.0-4.8); Lymphocytes % (Auto) 20 % (10-50); Mean Corpuscular HGB Conc 34.2 g/dl (31.0-37.0); Mean Corpuscular Hemoglobin 28.8 pg (25.0-35.0); Mean Corpuscular Volume 84 fL (80-100); Monocytes # (Auto) 0.6 Thou/mm3 (0.0-0.8); Monocytes % (Auto) 7 % (0-12); Neutrophils # (Auto) 6.5 Thou/mm3 (1.8-7.7); Neutrophils % (Auto) 73 % (37-80); Nucleated Red Blood Cell # 0.00 Thou/mm3 (0.00-0.00); Nucleated Red Blood Cell % 0 /100 WBC (0); Platelet Count 240 Thou/mm3 (140-440); RDW Standard Deviation 38.4 fL (35.1-43.9); Red Blood Count 4.73 Miln/mm3 (4.50-5.90); White Blood Count 8.9 Thou/mm3 (3.8-10.6)
[2025-06-22 13:25] LABS: Alanine Aminotransferase 105 U/L (10-49); Albumin, Serum 4.4 gm/dL (3.5-5.0); Albumin/Globulin Ratio 1.8 (1.2-2.2); Alkaline Phosphatase 53 U/L (46-116); Anion Gap 12 (7-16); Aspartate Amino Transferase 80 U/L (0-34); BUN/Creatinine Ratio 16 Ratio (12-20); Bilirubin,Total 0.4 mg/dL (0.3-1.2); Blood Urea Nitrogen 16 mg/dL (9-23); Calcium 9.0 mg/dL (8.3-10.6); Calcium (Corrected) 9.0 mg/dL (8.5-10.1); Carbon Dioxide 23.9 mMol/L (20.0-31.0); Chloride 106 mMol/L (98-107); Creatinine (Component) 1.0 mg/dL (0.6-1.3); Estimated Creatinine Clearance 133.6 mL/min (>60); Globulin 2.5 gm/dL (2.3-3.5); Glucose 249 mg/dL (74-106); Lipase 41 U/L (12-53); Osmolality,Calculated 292 (275-295); Potassium 3.9 mMol/L (3.4-5.1); Sodium 142 mMol/L (136-145); Total Protein 6.9 gm/dL (5.7-8.2); eGFR > 60 See Note
[2025-06-22] MEDS: SODIUM CHLORIDE 0.9% 1000 ML 1,000 ML 999 ML IV (13:35)
[2025-06-22 13:42] VITALS: BP 187/95; PULSE 85; RESP 17; O2SAT 97
[2025-06-22 14:01] LABS: Collection Type, Urine Clean Catch
[2025-06-22 14:09] LABS: Bilirubin,Urine Negative (Negative); Blood,Urine 3+ (Negative); Clarity,Urine Clear (Clear/Hazy); Color,Urine Yellow (Lt Yel-Yel); Culture Indicated,Urine Not Indicated; Glucose, Urine 4+ (Negative); Ketones,Urine 2+ (Negative); Leukocyte Esterase,Urine Negative (Negative); Nitrite,Urine Negative (Negative); PH,Urine 5.5 (5.0-7.0); Protein,Urine Trace (Neg - Trace); RBC,Urine 191 /hpf (0-3); Specific Gravity,Urine 1.028 (1.001-1.035); Squamous Epithelial Cell,Urine < 1 /hpf (0-5); Urobilinogen,Urine Negative mg/dL (0.0-1.0); WBC,Urine 5 /hpf (0-5)
--- NOTE | 2025-06-22 14:47 | EDNOTE_ITS ---
ED Abdominal Pain RME/HPI General Chief Complaint: Abdominal Pain Stated complaint: RT FLANK PAIN TODAY BUT SEEN ON WEEKEND Time seen by provider: 06/22/25 13:06 Arrival date/time: 06/22/25 12:07 Limitations: no limitations RME / HPI RME / HPI narrative: DR. CRISTÓBAL BAKER ED EVALUATION: 40-year-old male with past medical history of hypertension on lisinopril, diabetes mellitus on metformin and Ozempic, presents to the Emergency Department with diffuse abdominal pain, more pronounced in the right flank area, since Thursday. The pain has worsened today and is associated with nausea and vomiting. He is currently on clindamycin for a neck skin infection. Denies marijuana use, smoking, or alcohol consumption. Related Data Home Medications ?Medication ?Instructions ?Recorded ?Confirmed lisinopril 40 mg tablet 40 mg PO QDAY 03/12/2306/17 metformin 500 mg tablet 1,000 mg PO BID 03/12/23 semaglutide 2 mg/dose (8 mg/3 mL) 2 mg subcut .weekly 06/17/25 06/17/25 subcutaneous pen injector (Ozempic) Previous Rx's ?Medication ?Instructions ?Recorded doxycycline hyclate 100 mg tablet 100 mg PO BID 9 days #18 tabs 06/19/25 hydrocodone 5 mg-acetaminophen 325 1 tab PO Q6H PRN Pa in Scale 06/19/25 mg tablet 4-10(Mod-Sev 5 days #20 tabs ciprofloxacin HCl 500 mg tablet 500 mg PO Q12H #14 tab s 06/22/25 hydrocodone 5 mg-acetaminophen 300 1 tab PO QDAY PRN p ain (scale 06/22/25 mg tablet score 7-10) 3 days #3 tabs ibuprofen 800 mg tablet 800 mg PO Q8H PRN pain #14 t abs 06/22/25 naloxone 4 mg/actuation nasal 4 mg intranasal Q2M PRN opioid 06/22/25 spray (Narcan) overdose #2 ea tamsulosin 0.4 mg capsule (Flomax) 0.4 mg PO QDAY #14 caps 06/22/25 Allergies Allergy/AdvReac Type Severity Reaction Status Date / Time No Known Allergies Allergy Unknown Verified 06/22/25 12:10 Review of Systems Review of Systems Systems Reviewed: All systems reviewed, normal except as documented Past Medical History Past Medical History CARDIAC: Positive Hypertension MUSCULOSKELETAL: Positive Musculoskeletal Disorders ENDOCRINE: Positive Endocrine Disorders and Diabetes Mellitus Type 2 Social History SMOKING STATUS: Never smoker SUBSTANCE USE: does not use ALCOHOL: Never ED Exam General Limitations: Present no limitations General appearance: Present alert and in no apparent distress Head Head exam: Present atraumatic, normocephalic and normal inspection Eye Eye exam: Present normal appearance, PERRL and EOMI ENT ENT exam: Present normal exam, normal oropharynx and mucous membranes moist Neck Neck exam: Present normal inspection, full ROM and trachea midline Chest Chest inspection: Present normal inspection and symmetric chest wall rise Respiratory Respiratory exam: Present normal lung sounds bilaterally Cardiovascular Cardiovascular exam: Present regular rate, normal rhythm and normal heart sounds Abdominal Exam Abdominal exam: Present tenderness (diffuse abdominal pain but mainly in the right flank area) and normal bowel sounds Extremities Exam Extremities exam: Present normal inspection and full ROM Back Exam Back exam: Present normal inspection and full ROM Neurological Exam Neurological exam: Present alert, oriented X3 and CN II-XII intact Psychiatric Psychiatric exam: Present normal affect and normal mood Skin Skin exam: Present warm, dry, intact and normal color Course Quality Measures none Orders Category Date Time Status Bedside COVID-19 Antigen Test NOW Care 06/22/25 12:26 Active Bedside Influenza A&B Antigen Test NOW Care 06/22/25 12:26 Completed Insert IV NOW Care 06/22/25 12:[address] abdomen pelvis wo con Stat Exams 06/22/25 12:26 Completed CBC Stat Lab 06/22/25 12:52 Completed Comprehensive Metabolic Panel Stat Lab 06/22/25 12:52 Completed Lipase Stat Lab 06/22/25 12:52 Completed UA, C/S IF [Urinalysis, C/S if Indicated] Stat Lab 06/22/25 13:52 Completed HYDROmorphone INJ [Dilaudid Inj] Med 06/22/25 16:37 Once 1 mg IVP X1 ONE Metoclopramide Inj [Reglan Inj] Med 06/22/25 12:26 Discontinued 10 mg IM X1 ONE Morphine Inj Med 06/22/25 14:55 Discontinued 4 mg IVP STAT STA Sodium Chloride 0.9% 1000 ml [Ns] 1,000 ml Med 06/22/25 12:54 Discontinued IV 999 mls/hr Vital Signs Vital signs: Vital Signs Temperature 98.0 F 06/22/25 12:30 Pulse Rate 77 06/22/25 12:30 Respiratory Rate 16 06/22/25 12:30 Blood Pressure 175/98 H 06/22/25 12:30 Pulse Oximetry (%) 97 06/22/25 12:30 Oxygen Delivery Method Room Air 06/22/25 12:30 Abdominal Pain MDM MDM Narrative MDM Narrative:: Patient is a 40-year-old male with medical history notable for diabetes, hypertension that seen emerged from with concerns for right flank pain as well as abdominal pain. Vital signs and exam as listed. Per provider evaluated patient. Ordered labs, CT abdomen pelvis as well as offer medication for sym ptom relief. Labs without acute hematologic abnormality no significant metabolic abnormality no evidence of kidney dysfunction, patient with mild transaminitis, T. bili normal, AST 80, ALT 105, alk phos normal, patient at baseline has a mild transaminitis. Lipase normal, urinalysis with glucosuria, ketonuria 3+ blood nitrite negative leuk esterase negative. Patient has 191 red blood cells. No bacteria. CT abdomen pelvis evidence of mild right hydronephrosis secondary to 2 mm distal right ureterovesicular junction calculus. Also evidence of cystitis. Given findings we will provide patient with Flomax, antibiotic as well as recommendation that he sees a urologist as an outpatient and follow-up with his primary care doctor this week. Patient is to hydrate well. On reevaluation patient hemodynamically stable nondistressed symptoms well- controlled will discharge home close return precautions follow-up with primary care doctor. Patient data External records reviewed:: [facility] previous records Clinical information provided by:: patient Social determinants that could affect healthcare access:: none Patient has the following chronic illnesses:: Hypertension on lisinopril, diabetes mellitus on metformin and Ozempic. He is currently on clindamycin for a neck skin infection. Denies marijuana use, smoking, or alcohol consumption. How is presenting disease/condition affected by chronic disease/condition?: exacerbated by Evaluation data The following diagnostics were reviewed and interpreted by me:: lab results and radiology exam(s) Lab and/or radiology exams considered but not ordered:: none Interpretation Summary: Procedure(s): CT abdomen pelvis wo con Accession Number(s): [id number] cc: Angie (CARY),Lars TOWNSEND; German Lilly MD~ Examination: CT abdomen and pelvis without contrast. Coronal 3-D reconstructions. Sagittal 2-D reconstructions. Date and time of exam:04/22/2025 1444 hours INDICATIONS: Lower abdominal pain with bilateral flank pain today COMPARISON: June 17, 2025 CTDI: vol (mGy): 13 DLP: (mGycm): 907 Technique: Axial images of the abdomen have been obtained, 3 mm slice thickness Intravenous contrast material has not been administered. Low dose protocols were performed. One or more of the following dose reduction techniques were used; automated exposure control, adjustment of the mA and/or KV according to patient size, use of iterative reconstruction technique. Findings: Liver irregular in contour with diffuse fatty infiltration No gallstones Spleen not enlarged No pancreatic or adrenal mass 2 mm right renal calculus Minimal right hydronephrosis secondary to 2 mm right ureterovesical junction calculus No bowel obstruction No pericecal inflammatory change Mild thickening of urinary bladder wall IMPRESSION: Minimal right hydronephrosis secondary to 2 mm distal right ureterovesical junction calculus Cystitis pattern Dictated By: German Lilly MD Medications / Prescriptions Medications or Prescriptions considered but not ordered:: none Medication administrations:: Medication Administration History Discontinued Medications Sodium Chloride (Ns) 1,000 mls @ 999 mls/hr IV .Q1H1M ONE Stop: 06/22/25 13:54 Last Admin: 06/22/25 13:35 Dose: 999 mls/hr Documented By: ED Metoclopramide HCl (Metoclopramide Inj 5 Mg/Ml Vial 2 Ml) 10 mg IM X1 ONE; Protocol Stop: 06/22/25 12:27 Last Admin: 06/22/25 12:52 Dose: 10 mg Documented By: ED Morphine Sulfate (Morphine Sulf Inj 10 Mg/Ml Vial) 4 mg IVP STAT STA Stop: 06/22/25 14:56 Last Admin: 06/22/25 15:19 Dose: 4 mg Documented By: ED see above Consultations Consultation(s) initiated? (list below): No Diagnosis Differential diagnosis abdominal pain: other (Nephrolithiasis, pyelonephritis, and appendicitis.) Most likely diagnosis given after review of the tests above:: Urinary stone, transaminitis, renal colic, hypertension Admission Indicated Admission indicated?: not indicated Admission Request Was there a request for admission?: No Disposition Plan Disposition Plan: Discharge Discharge Attestation Discharge Attestation: The patient and all family members were given an opportunity to ask questions and understood the discharge instructions. Discharge instructions specifically effects, indications for sooner follow up or return to the emergency department, and the expected course of current diagnosis. Patient condition: Stable Discharge Plan Plan Patient Disposition: HOME (Self Care) Prescriptions/Referrals Prescriptions/Med Rec: New ciprofloxacin HCl 500 mg tablet 500 mg PO Q12H Qty: 14 0RF tamsulosin [Flomax] 0.4 mg capsule 0.4 mg PO QDAY Qty: 14 0RF hydrocodone-acetaminophen 5-300 mg tablet 1 tab PO QDAY MDD 1 PRN (Reason: pain (scale score 7-10)) 3 Days Qty: 3 0RF ibuprofen 800 mg tablet 800 mg PO Q8H PRN (Reason: pain) Qty: 14 0RF naloxone [Narcan] 4 mg/actuation spray,non-aerosol 4 mg intranasal Q2M PRN (Reason: opioid overdose) Qty: 2 0RF Rx Instructions: spray 1 dose into ONE nostril; alternate nostrils w each dose until help arrives No Action metformin 500 mg tablet 1,000 mg PO BID lisinopril 40 mg tablet 40 mg PO QDAY Patient Comments: TAKE 1 TABLET BY MOUTH EVERY DAY FOR 90 DAYS Ozempic 2 mg/dose (8 mg/3 mL) pen injector 2 mg SUBCUT .weekly Patient Comments: INJECT 2 MG SUBCUTANEOUSLY WEEKLY-every thursday hydrocodone-acetaminophen 5-325 mg Tablet 1 tab PO Q6H MDD 20mg PRN (Reason: Pain Scale 4-10(Mod-Sev) 5 Days Qty: 20 0RF doxycycline hyclate 100 mg Tablet 100 mg PO BID 9 Days Qty: 18 0RF Referrals: Paul Malcolm MD [Primary Care Provider] - In 1 week Problem List Clinical Impression: Kidney stone, Hydronephrosis, Cystitis Patient/Caregiver Discharge Instructions Education Materials: ED Kidney Stone w/ Colic Additional Instructions: Your workup today identified that you have a 2 mm urinary stone on the right side, with some hydronephrosis and concern for cystitis. Antibiotics were provided as well as Flomax that will help with passing of the stone. It is important that you hydrate well, follow-up with your primary care doctor within the next 1 to 2 days, and request follow-up with the urologist. Please return immediately if you develop fever, worsening symptoms, intractable pain or any other symptom of concern. Print Language: [place]iboutian Stand Alone Forms: Sona Award Info., Patient Portal Info Letter
--- NOTE | 2025-06-22 14:48 | PC.NURSE ---
Pt. back to room [address]
[2025-06-22 15:10] VITALS: BP 184/94; PULSE 88; RESP 17; TEMP 36.9; O2SAT 98
[2025-06-22] MEDS: MORPHINE SULF INJ 10 MG/ML VIAL 4 MG IVP (15:19)
--- NOTE | 2025-06-22 16:39 | PD.EDADDENDU ---
Emergency Room Addendum Addendum Narrative: Patient also tested positive for flu B. Had joint decision-making conversation with the patient, patient states that he has not had any bodyaches cough runny nose or any other flulike symptoms at this time. Offered patient Tamiflu however patient declined at this time.
[2025-06-22 16:54] VITALS: BP 199/106; PULSE 85; RESP 17; O2SAT 95
[2025-06-22] MEDS: HYDROmorphone INJ 2 MG/ML VIAL 1 MG IVP ×2 (17:01→18:47)
[2025-06-22 18:19] VITALS: BP 174/90; PULSE 90; RESP 17; TEMP 36.9; O2SAT 96
[2025-06-22] MEDS: cefTRIAXone/D5w 1gm IV premix 1 GM/50 ML BAG IV (19:01)
[2025-06-22 20:01] VITALS: BP 179/89; PULSE 95; RESP 16; TEMP 36.9; O2SAT 97
[2025-06-22] MEDS: ONDANSETRON ODT 4 MG TABRAP PO (20:08)
== END 2025-06-22 20:17 | disposition home or self-care (01) ==
PROVIDERS: Nurse Practitioner Primary Care; Emergency Provider Emergency Medicine; PCP Family Medicine
DX: N13.6 Pyonephrosis (principal); N30.90 Cystitis, unspecified without hematuria; J10.1 Influenza due to other identified influenza virus with other respiratory manifestations; I10 Essential (primary) hypertension; E11.9 Type 2 diabetes mellitus without complications; Z79.84 Long term (current) use of oral hypoglycemic drugs; Z79.85 Long-term (current) use of injectable non-insulin antidiabetic drugs; Z79.899 Other long term (current) drug therapy
CPT/HCPCS: 36415; 74176; 80053; 81001; 83690; 85025; 87400; 87811; 99283; J0696; J1171; J2270; J2765; J7030; Q0162

== ENCOUNTER → 2025-09-26 | Outpatient (BNVA) | payer OTHER, SELFPAY | END | disposition home or self-care (01) | PROVIDERS: PCP Family Medicine; Referring Provider Family Medicine; Visit Provider Urology | DX: Z30.2 Encounter for sterilization (principal); E11.9 Type 2 diabetes mellitus without complications; I10 Essential (primary) hypertension; E66.9 Obesity, unspecified; Z68.39 Body mass index [BMI] 39.0-39.9, adult | CPT/HCPCS: 81003; 99212; G0463 ==

== ENCOUNTER 2025-10-25 22:52 | Emergency (ER) | payer BC, SELFPAY ==
[2025-10-25 22:53] VITALS: BMI 38.7
[2025-10-25 23:40] VITALS: BP 173/96; PULSE 124; RESP 19; TEMP 38.3; O2SAT 97
--- NOTE | 2025-10-25 23:45 | EKG_ITS ---
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
--- NOTE | 2025-10-25 23:45 | XR_ITS ---
EXAMINATION: AP chest single view TECHNIQUE: AP portable upright chest single view Date and time: October 26, 2025, 12:20 a.m., comparison June 17, 2025 INDICATIONS: Body aches coughing fever today FINDINGS: Normal heart size Lungs are clear. Osseous rectors are intact IMPRESSION: No active disease
--- NOTE | 2025-10-25 23:54 | PD.EDFEVER ---
ED Fever RME/HPI General Chief Complaint: Flu Like Symptoms Stated Complaint: BODYACHES,COUGH Time Seen by Provider: 10/25/25 23:47 Arrival date/time: 10/25/25 22:52 RME / HPI RME / HPI Narrative: See MDM for Dr. Jenkins's HPI Documentation. Related Data Home Medications ?Medication ?Instructions ?Recorded ?Confirmed lisinopril 40 mg tablet 40 mg PO QDAY 03/12/23 09/26/25 empagliflozin 10 mg tablet 10 mg PO QAM 09/26/25 09/26/25 (Jardiance) tirzepatide 2.5 mg/0.5 mL 2.5 mg subcut QWEEK 09/26/25 09/26/25 subcutaneous pen injector (Niharika) Previous Rx's ?Medication ?Instructions ?Recorded acetaminophen 300 mg-codeine 30 mg 2 tab PO Q8H PRN pain #10 tabs 10/26/25 tablet albuterol sulfate 90 mcg/actuation 2 puff inhalation Q6H PRN 10/26/25 aerosol inhaler shortness of breath or wheezing #8.5 grams ibuprofen 800 mg tablet 800 mg PO Q8H PRN pain #30 tabs 10/26/25 ondansetron 4 mg disintegrating 4 mg PO TID PRN nausea and 10/26/25 tablet vomiting 30 days #10 tabs oseltamivir 75 mg capsule (Tamiflu) 75 mg PO BID 5 days #10 caps 10/26/25 prednisone 50 mg tablet 50 mg PO QDAY #3 tabs 10/26/25 Allergies Allergy/AdvReac Type Severity Reaction Status Date / Time No Known Allergies Allergy Unknown Verified 09/26/25 14:41 Review of Systems Review of Systems Systems Reviewed: All systems reviewed, normal except as documented Past Medical History Past Medical History CARDIAC: Positive Hypertension MUSCULOSKELETAL: Positive Musculoskeletal Disorders ENDOCRINE: Positive Endocrine Disorders and Diabetes Mellitus Type 2 Physical Exam Narrative Physical exam: See MDM for Dr. Jenkins's Physical Exam Documentation. ED Exam Narrative Physical exam: See MDM for Dr. Jenkins's Physical Exam Documentation. Course Quality Measures none Orders Category Date Time Status Bedside COVID-19 Antigen Test NOW Care 10/25/25 23:43 Completed Bedside Influenza A&B Antigen Test NOW Care 10/25/25 23:44 Completed EKG (ED ONLY) *Do not use* NOW Care 10/25/25 23:45 Completed Glucose [Bedside Blood Glucose] NOW Care 10/25/25 23:48 Completed Saline [Insert IV] NOW Care 10/25/25 23:44 Completed Straight [In and Out Catheter] X1 Care 10/25/25 23:44 Completed EKG (ED Only) Stat Exams 10/25/25 23:45 Draft XR chest 1V portable Stat Exams 10/25/25 23:45 Completed ABG [Arterial Blood Gas] Stat Lab 10/26/25 00:21 Completed Alcohol, Blood Medical Stat Lab 10/25/25 23:46 Completed Ammonia Stat Lab 10/25/25 23:46 Completed Amylase Stat Lab 10/25/25 23:46 Completed BNP [B-Type Natriuretic Peptide] Stat Lab 10/25/25 23:46 Completed Beta Hydroxybutyrate Stat Lab 10/25/25 23:46 Completed Bilirubin,Direct Stat Lab 10/25/25 23:46 Completed Blood Culture (Lab) Stat Lab 10/25/25 23:46 Results CBC Stat Lab 10/25/25 23:46 Completed CK [Creatine Kinase] Stat Lab 10/25/25 23:46 Completed CMP [Comprehensive Metabolic Panel] Stat Lab 10/25/25 23:46 Completed CRP [C-Reactive Protein] Stat Lab 10/25/25 23:46 Completed D-Dimer Stat Lab 10/25/25 23:46 Completed Drug Screen,Urine Stat Lab 10/26/25 01:18 Completed ESR [Sed Rate (ESR)] Stat Lab 10/25/25 23:46 Completed Hemoglobin A1C [Glycohemoglobin w (eAG)] Stat Lab 10/25/25 23:46 Completed Lactate (Lactic Acid) Stat Lab 10/25/25 23:46 Completed Lipase Stat Lab 10/25/25 23:46 Completed Magnesium Stat Lab 10/25/25 23:46 Completed Procalcitonin Stat Lab 10/25/25 23:46 Completed TSH [Thyroid Stimulating Hormone] Stat Lab 10/25/25 23:46 Completed Troponin I Stat Lab 10/25/25 23:46 Completed UA, C/S IF [Urinalysis, C/S if Indicated] Stat Lab 10/26/25 01:18 Completed Acetaminophen Tab [Tylenol ES Tab] Med 10/25/25 23:44 Discontinued 1,000 mg PO X1 ONE Ketorolac Inj [Toradol Inj] Med 10/25/25 23:44 Discontinued 30 mg IVP X1 ONE Ondansetron Inj [Zofran Inj] Med 10/25/25 23:44 Discontinued 4 mg IVP X1 ONE Oseltamivir [Tamiflu] Med 10/26/25 01:02 Discontinued 75 mg PO X1 ONE Ringers Lactated 1000 ml [Lactated Ringers] 1,000 ml Med 10/25/25 23:44 Discontinued IV 1,000 mls/hr Ringers Lactated 1000 ml [Lactated Ringers] 1,000 ml Med 10/25/25 23:44 Discontinued IV 1,000 mls/hr cefTRIAXone/D5w 1gm IV premix [Rocephin/D5w 1gm IV Med 10/25/25 23:44 Discontinued premix] 1 gm in 50 ml IV X1 Vital Signs Vital signs: Vital Signs Temperature 100.9 F H 10/25/25 23:40 Pulse Rate 124 H 10/25/25 23:40 Respiratory Rate 19 10/25/25 23:40 Blood Pressure 173/96 H 10/25/25 23:40 Pulse Oximetry (%) 97 10/25/25 23:40 Oxygen Delivery Method Room Air 10/25/25 23:40 Fever MDM Narrative MDM Narrative:: This section includes all my notes and documentations, including HPI, PE, and ED course. Brian Jenkins MD HPI: 40 y/o male with Hx of HTN and Type II DM presents with a couple day history of subjective fever, chills, severe bodyaches, and malaise. No other complaints. ROS: All negative except as documented in HPI. Physical Exam: General: Alert and oriented. Appearance of malaise noted. Fever noted. Eyes: Conjunctivae and lids clear. ENT: No nasal congestion. Pharynx normal. TM normal bilaterally. Neck: Supple. Heart: Tachycardia with regular rhythm. Lungs: No respiratory distress. Good air movement. No rhonchi, wheezing, rales. Abdomen: Soft and nontender. Normal bowel sounds. No distension. No rebound or guarding. Back: No CVA tenderness. Skin: Warm and dry. Neuro: Alert and oriented X 3. I reviewed all diagnostic test results: My interpretation of the EKG is sinus tachcardia (109 bpm) with no ST-T changes. My interpretation of the chest x-ray is NAD. Blood/urine tests unremarkable. Covid/Influenza: Positive Influenza A At this point, diagnoses include: Influenza Treatment here included: IVF Rocephin 1 G (prophylaxis before diagnostics) Tylenol 1 G PO Toradol 30 mg IV Zofran 4 mg IV He felt much better. Recommended outpatient treatment. Based on my best medical judgment, made decision no further evaluation or treatment indicated at this time. Patient understands and agrees to the discharge instructions customized and printed, see below. Discharge instructions from Dr. Jenkins: -- No physical exertion for 3 days to help rest the lungs. -- No smoking or exposure to smoking or pets or dust or cold or humidity. -- Tamiflu to kill the germs causing the influenza. -- Prednisone to help decrease the swelling in the airways. -- Albuterol 2 puffs every 4-6 hours as needed for cough or shortness of breath. -- Ibuprofen 800 mg every 6-8 hours today and tomorrow to decrease inflammation then as needed. -- Tylenol with codeine for severe cough or severe pain. -- For good hydration, increase oral fluid and maintain clear urine. If dark or yellow, increase oral fluid. We need extra fluid when we are sick. Zofran for nausea/vomiting. -- See a private doctor next week for recheck if not completely better. -- Seek immediate medical care with worsening or with any concerns. Brian Jenkins MD Patient data External records reviewed:: [facility] previous records (Reviewed prior ED records from 06/22/25. Patient was seen for Cystitis.) Clinical information provided by:: patient Social determinants that could affect healthcare access:: none Patient has the following chronic illnesses:: HTN, Type II DM How is presenting disease/condition affected by chronic disease/condition?: exacerbated by Evaluation data The following diagnostics were reviewed and interpreted by me:: lab results, radiology exam(s) and EKG tracing(s) (My interpretation of the EKG is: Sinus tachycardia (109 bpm) with nonspecific ST-T changes. Brian Jenkins MD) Lab and/or radiology exams considered but not ordered:: None Interpretation Summary: I reviewed all diagnostic test results: My interpretation of the EKG is sinus tachcardia (109 bpm) with no ST-T changes. My interpretation of the chest x-ray is NAD. Blood/urine tests unremarkable. Covid/Influenza: Positive Influenza A Medications / Prescriptions Medications or Prescriptions considered but not ordered:: None Medication administrations:: Medication Administration History Discontinued Medications Acetaminophen (Acetaminophen 500 Mg Tablet) 1,000 mg PO X1 ONE Stop: 10/25/25 23:45 Last Admin: 10/26/25 00:29 Dose: 1,000 mg Documented By: MICHAEL Lactated Ringer's (Lactated Ringers) 1,000 mls @ 1,000 mls/hr IV .Q1H ONE Stop: 10/26/25 00:43 Last Infusion: 10/26/25 02:17 Dose: Infused Documented By: Admin: 10/26/25 00:30 Dose: 1,000 mls/hr Documented By: MICHAEL Lactated Ringer's (Lactated Ringers) 1,000 mls @ 1,000 mls/hr IV .Q1H ONE Stop: 10/26/25 00:43 Last Infusion: 10/26/25 02:17 Dose: Infused Documented By: Admin: 10/26/25 00:31 Dose: 1,000 mls/hr Documented By: MICHAEL Ceftriaxone Sodium/Dextrose (Rocephin/D5w 1gm Iv Premix) 1 gm in 50 mls @ 100 mls/hr IV X1 ONE Stop: 10/26/25 00:13 Last Infusion: 10/26/25 01:06 Dose: Infused Documented By: Admin: 10/26/25 00:30 Dose: 100 mls/hr Documented By: MICHAEL Ketorolac Tromethamine (Ketorolac Inj 30 Mg/Ml Vial) 30 mg IVP X1 ONE Stop: 10/25/25 23:45 Last Admin: 10/26/25 00:30 Dose: 30 mg Documented By: MICHAEL Ondansetron HCl (Ondansetron Inj 2 Mg/Ml Inj 2 Ml) 4 mg IVP X1 ONE; Protocol Stop: 10/25/25 23:45 Last Admin: 10/26/25 00:30 Dose: 4 mg Documented By: MICHAEL Oseltamivir Phosphate (Oseltamivir 75 Mg Capsule) 75 mg PO X1 ONE Stop: 10/26/25 01:03 Last Admin: 10/26/25 01:16 Dose: 75 mg Documented By: MICHAEL Treatment here included: IVF Rocephin 1 G (prophylaxis before diagnostics) Tylenol 1 G PO Toradol 30 mg IV Zofran 4 mg IV Consultations Consultation(s) initiated? (list below): No Diagnosis Fever Differential Diagnosis: cellulitis, fever of unknown origin, gastroenteritis, community acquired pneumonia, pyelonephritis, viral infection, sepsis and influenza Most likely diagnosis given after review of the tests above:: Influenza Admission Indicated Admission indicated?: not indicated Explain why admission is indicated or not indicated:: With significant improvement and no condition needing emergent intervention, there was no indication for admission. Admission Request Was there a request for admission?: No Disposition Plan Disposition Plan: Discharge Discharge Attestation Discharge Attestation: The patient and all family members were given an opportunity to ask questions and understood the discharge instructions. Discharge instructions specifically effects, indications for sooner follow up or return to the emergency department, and the expected course of current diagnosis. Patient condition: Stable Discharge Plan Plan Patient Disposition: HOME (Self Care) Prescriptions/Referrals Prescriptions/Med Rec: New ibuprofen 800 mg tablet 800 mg PO Q8H PRN (Reason: pain) Qty: 30 0RF acetaminophen-codeine 300-30 mg tablet 2 tab PO Q8H MDD 6 PRN (Reason: pain) Qty: 10 0RF oseltamivir [Tamiflu] 75 mg capsule 75 mg PO BID 5 Days Qty: 10 0RF prednisone 50 mg tablet 50 mg PO QDAY Qty: 3 0RF albuterol sulfate 90 mcg/actuation HFA aerosol inhaler 2 puff inhalation Q6H PRN (Reason: shortness of breath or wheezing) Qty: 8.5 0RF ondansetron 4 mg tablet,disintegrating 4 mg PO TID PRN (Reason: nausea and vomiting) 30 Days Qty: 10 0RF No Action Jardiance 10 mg tablet 10 mg PO QAM Mounjaro 2.5 mg/0.5 mL pen injector 2.5 mg subcut QWEEK Rx Instructions: for 4 weeks lisinopril 40 mg tablet 40 mg PO QDAY Patient Comments: TAKE 1 TABLET BY MOUTH EVERY DAY FOR 90 DAYS Referrals: Paul Malcolm MD [Primary Care Provider, Family Practice] - In 1 week Problem List Clinical Impression: Influenza Patient/Caregiver Discharge Instructions Discharge Activity: activity as tolerated Education Materials: ED Influenza (Adult) Additional Instructions: Discharge instructions from Dr. Jenkins: -- No physical exertion for 3 days to help rest the lungs. -- No smoking or exposure to smoking or pets or dust or cold or humidity. -- Tamiflu to kill the germs causing the influenza. -- Prednisone to help decrease the swelling in the airways. -- Albuterol 2 puffs every 4-6 hours as needed for cough or shortness of breath. -- Ibuprofen 800 mg every 6-8 hours today and tomorrow to decrease inflammation then as needed. -- Tylenol with codeine for severe cough or severe pain. -- For good hydration, increase oral fluid and maintain clear urine. If dark or yellow, increase oral fluid. We need extra fluid when we are sick. Zofran for nausea/vomiting. -- See a private doctor next week for recheck if not completely better. -- Seek immediate medical care with worsening or with any concerns. Print Language: French Stand Alone Forms: [employer] Award Info., Patient Portal Info Letter
[2025-10-26 00:15] VITALS: BP 131/81; PULSE 112; RESP 20; O2SAT 96
[2025-10-26 00:23] LABS: Lactate (Lactic Acid) 1.8 mMol/L (0.4-2.0)
[2025-10-26 00:24] LABS: Basophils # (Auto) 0.0 Thou/mm3 (0.0-0.2); Basophils % (Auto) 0 % (0-2.5); Eosinophils # (Auto) 0.1 Thou/mm3 (0.0-0.5); Eosinophils % (Auto) 1 % (0-10); Hematocrit 41.1 % (41.0-53.0); Hemoglobin 13.6 g/dL (13.5-16.0); Immature Granulocytes Auto 0.02 Thou/mm3 (0.00-0.00); Lymphocytes # (Auto) 0.7 Thou/mm3 (1.0-4.8); Lymphocytes % (Auto) 7 % (10-50); Mean Corpuscular HGB Conc 33.1 g/dl (31.0-37.0); Mean Corpuscular Hemoglobin 28.0 pg (25.0-35.0); Mean Corpuscular Volume 85 fL (80-100); Monocytes # (Auto) 1.1 Thou/mm3 (0.0-0.8); Monocytes % (Auto) 11 % (0-12); Neutrophils # (Auto) 7.6 Thou/mm3 (1.8-7.7); Neutrophils % (Auto) 81 % (37-80); Nucleated Red Blood Cell # 0.00 Thou/mm3 (0.00-0.00); Nucleated Red Blood Cell % 0 /100 WBC (0); Platelet Count 224 Thou/mm3 (140-440); RDW Standard Deviation 40.0 fL (35.1-43.9); Red Blood Count 4.86 Miln/mm3 (4.50-5.90); White Blood Count 9.5 Thou/mm3 (3.8-10.6)
[2025-10-26 00:26] LABS: Beta Hydroxybutyrate 0.2 mmol/L (<0.6)
[2025-10-26 00:28] LABS: Allen Test Performed/OK; Base Excess 1 (-3-3); HCO3 26 mEq/L (20-26); Inspired Oxygen, FIO2 21 %; O2 Saturation 91 % (91-98); PCO2 40 mmHg (32.0-48.0); PO2 61 mmHg (83-108); Puncture Site Right Radial; pH, Arterial 7.42 (7.35-7.45)
[2025-10-26 00:29] VITALS: TEMP 38.3
[2025-10-26] MEDS: ACETAMINOPHEN 500 MG TABLET 1000 MG PO (00:29)
[2025-10-26 00:30] VITALS: TEMP 38.3
[2025-10-26] MEDS: ONDANSETRON INJ 2 MG/ML INJ 2 ML 4 MG IVP (00:30)
[2025-10-26] MEDS: cefTRIAXone/D5w 1gm IV premix 1 GM/50 ML BAG IV (00:30)
[2025-10-26] MEDS: RINGERS LACTATED 1000 ML 1,000 ML IV ×2 (00:30→00:31)
[2025-10-26] MEDS: KETOROLAC INJ 30 MG/ML VIAL IVP (00:30)
[2025-10-26 00:41] LABS: B-Type Natriuretic Peptide < 20 pg/mL (0-100)
[2025-10-26 00:41] LABS: D-Dimer < 250 ng/mL (<600); Sed Rate (ESR) 31 mm/hr (0-15)
[2025-10-26 00:48] LABS: Ammonia < 10 uMol/L (11-32)
[2025-10-26 00:53] LABS: Glucose Estimated Average 166 mg/dL (80-131); Hemoglobin A1C 7.4 % Hgb (4.8-6.0)
[2025-10-26 00:55] LABS: Alanine Aminotransferase 35 U/L (10-49); Albumin, Serum 4.5 gm/dL (3.5-5.0); Albumin/Globulin Ratio 1.3 (1.2-2.2); Alcohol, Blood Medical < 3.0 mg/dL (0-10.0); Alkaline Phosphatase 73 U/L (46-116); Amylase 44 U/L (30-118); Anion Gap 9 (7-16); Aspartate Amino Transferase 29 U/L (0-34); BUN/Creatinine Ratio 15 Ratio (12-20); Bilirubin,Direct 0.1 mg/dL (0.0-0.3); Bilirubin,Total 0.4 mg/dL (0.3-1.2); Blood Urea Nitrogen 17 mg/dL (9-23); C-Reactive Protein 2.1 mg/dL (0.0-0.9); Calcium 9.4 mg/dL (8.3-10.6); Calcium (Corrected) 9.4 mg/dL (8.5-10.1); Carbon Dioxide 27.5 mMol/L (20.0-31.0); Chloride 103 mMol/L (98-107); Creatine Kinase 70 U/L (34-171); Creatinine (Component) 1.1 mg/dL (0.6-1.3); Estimated Creatinine Clearance 117.2 mL/min (>60); Globulin 3.4 gm/dL (2.3-3.5); Glucose 215 mg/dL (74-106); Lipase 41 U/L (12-53); Magnesium 2.2 mg/dL (1.6-2.6); Osmolality,Calculated 285 (275-295); Potassium 4.1 mMol/L (3.4-5.1); Procalcitonin 0.10 ng/ml (0.0-0.49); Sodium 139 mMol/L (136-145); Thyroid Stimulating Hormone 1.10 uIU/mL (0.55-4.78); Total Protein 7.9 gm/dL (5.7-8.2); Troponin I < 0.002 ng/mL (0.0-0.045); eGFR > 60 See Note
[2025-10-26] MEDS: OSELTAMIVIR 75 MG CAPSULE PO (01:16)
[2025-10-26 01:43] LABS: Collection Type, Urine Clean Catch
[2025-10-26 01:52] LABS: Bilirubin,Urine Negative (Negative); Blood,Urine Negative (Negative); Clarity,Urine Clear (Clear/Hazy); Color,Urine Colorless (Lt Yel-Yel); Culture Indicated,Urine Not Indicated; Glucose, Urine 4+ (Negative); Ketones,Urine Negative (Negative); Leukocyte Esterase,Urine Negative (Negative); Nitrite,Urine Negative (Negative); PH,Urine 6.0 (5.0-7.0); Protein,Urine Negative (Neg - Trace); RBC,Urine < 1 /hpf (0-3); Specific Gravity,Urine 1.036 (1.001-1.035); Squamous Epithelial Cell,Urine < 1 /hpf (0-5); Urobilinogen,Urine Negative mg/dL (0.0-1.0); WBC,Urine 1 /hpf (0-5)
[2025-10-26 01:56] LABS: Amphetamine/Methamp Scrn,U Negative (Negative); Barbiturate Screen,Urine Negative (Negative); Benzodiazepines Screen,Urine Negative (Negative); Benzoylecgonine Screen, Ur Negative (Negative); Fentanyl Screen,Urine Negative (Negative); Opiate Screen,Urine Negative (Negative); THC Screen,Urine Negative (Negative)
[2025-10-26 02:15] VITALS: BP 107/66; PULSE 94; RESP 16; TEMP 36.8; O2SAT 95
== END 2025-10-26 02:33 | disposition home or self-care (01) ==
PROVIDERS: Emergency Provider Emergency Medicine; PCP Family Medicine
DX: J10.1 Influenza due to other identified influenza virus with other respiratory manifestations (principal); E11.9 Type 2 diabetes mellitus without complications; I10 Essential (primary) hypertension
CPT/HCPCS: 36415; 36600; 71045; 80053; 80307; 80320; 81001; 82010; 82140; 82150; 82248; 82550; 82803; 83036; 83605; 83690; 83735; 83880; 84145; 84443; 84484; 85025; 85379; 85652; 86140; 87040; 87502; 87635; 96361; 96365; 96375; 99284; J0696; J1885; J2405; J7120; A9270; G0480